=== PATIENT | female | born 1985 | race Caucasian/White ===

== ENCOUNTER 2016-11-08 18:29 | Inpatient (IN) | payer OTHER ==
--- NOTE | 2016-11-08 21:42 | HP ---
COWS - Scale Resting Pulse: 1= IN 81-100 Sweatin= Chills/Flushing Restless Observation: 1= Difficult to Sit Still Pupil Size: 1= Pupils >than Normal Bone or Joint Aches: 2= Severe Diffuse Aches Runny Nose/ Eye Tearin= Runny Nose/Eyes GI Upset > 30mins: 0= None Tremor Observation: 0= None Yawning Observation: 2= >3x During Session Anxiety or Irritability: 2=Irritable/Anxious Goose Flesh Skin: 3=Piloerection COWS Score: 15 Admission ROS S - HPI Chief Complaint: WITHDRAWAL SYMPTOMS Allergies/Adverse Reactions: Allergies Allergy/AdvReac Type Severity Reaction Status Date / Time No Known Allergies Allergy Verified 11/08/16 21:07 History of Present Illness: 31 y.o. woman with a 4 year history of opiate dependence is here seeking detox. She was last here for detox in 08/2015. She reports having a 9 month history of abstinence while on Suboxone 4 months ago. Exam Limitations: No Limitations - Ebola screening Have you traveled outside of the country in the last 21 days: No Have you had contact with anyone from an Ebola affected area: No Do you have a fever: No - Review of Systems Constitutional: Chills, Night Sweats, Changes in sleep EENT: reports: Tearing, Nose Congestion Respiratory: reports: No Symptoms reported Cardiac: reports: No Symptoms Reported GI: reports: No Symptoms Reported : reports: No Symptoms Reported Musculoskeletal: reports: Back Pain Integumentary: reports: Other (Laceration to left hand) Neuro: reports: No Symptoms reported Endocrine: reports: No Symptoms Reported Hematology: reports: No Symptoms Reported Psychiatric: reports: Orientated x3, Anxious, Depressed, other (PTSD) Other Systems: Reviewed and Negative Patient History - Patient Medical History Hx Anemia: No Hx Asthma: Yes Hx Chronic Obstructive Pulmonary Disease (COPD): No Hx Cancer: No Hx Cardiac Disorders: No Hx Congestive Heart Failure: No Hx Hypertension: Yes Hx Hypercholesterolemia: Yes Hx Pacemaker: No HX Cerebrovascular Accident: No Hx Seizures: No Hx Dementia: No Hx Diabetes: No Hx Gastrointestinal Disorders: No Hx Liver Disease: No Hx Genitourinary Disorders: No Hx Sexually Transmitted Disorders: No Hx Renal Disease (ESRD): No Hx Thyroid Disease: No Hx Human Immunodeficiency Virus (HIV): No Hx Hepatitis C: No Hx Depression: Yes Hx Suicide Attempt: No Hx Bipolar Disorder: No Hx Schizophrenia: No - Patient Surgical History Past Surgical History: Yes Hx Neurologic Surgery: No Hx Cataract Extraction: No Hx Cardiac Surgery: No Hx Lung Surgery: No Hx Breast Surgery: No Hx Breast Biopsy: No Hx Abdominal Surgery: No Hx Appendectomy: No Hx Cholecystectomy: No Hx Genitourinary Surgery: No Hx Section: No Hx Orthopedic Surgery: No Other Surgical History: tonsillectomy age 10 Anesthesia Reaction: No - PPD History Previous Implant?: Yes Documented Results: Negative w/proof Date: 09/07/15 Results: 0 PPD to be Administered?: Yes - Reproductive History Patient is a Female of Child Bearing Age (11 -55 yrs old): Yes Last Menstrual Period: 11/08/16 Patient : No - Smoking Cessation Smoking history: Current every day smoker Have you smoked in the past 12 months: Yes Aproximately how many cigarettes per day: 20 Hx Chewing Tobacco Use: No Initiated information on smoking cessation: Yes 'Breaking Loose' booklet given: 11/08/16 - Substance & Tx. History Hx Alcohol Use: No Hx Substance Use: Yes Substance Use Type: Cocaine, Heroin, Marijuana Hx Substance Use Treatment: (Detox here in 08/2015; never sought rehab ) - Substances Abused Heroin Route: Injection Frequency: Daily Amount used: 20 bags Age of first use: 29 Date of Last Use: 11/08/16 Family Disease History - Family Disease History Family Disease History: Diabetes: Grandparent, Other: Mother (heroin abuse - , psych), Brother (heroin abuse ), Sister (heroin use with one half sister) Admission Physical Exam S - Vital Signs Vital Signs: Vital Signs - 24 hr 11/08/16 21:03 Temperature 96.3 F L Pulse Rate 85 Respiratory 20 Rate Blood Pressure 130/90 - Physical General Appearance: Yes: No Apparent Distress, Nourished, Appropriately Dressed , Anxious HEENTM: Yes: Hearing grossly Normal, Normal ENT Inspection, Normocephalic, Normal Voice Respiratory: Yes: Chest Non-Tender, Lungs Clear, Normal Breath Sounds, No Respiratory Distress, No Accessory Muscle Use Neck: Yes: No masses,lesions,Nodules, Trachea in good position Breast: Yes: Breast Exam Deferred Cardiology: Yes: Regular Rhythm, Regular Rate Abdominal: Yes: Normal Bowel Sounds, Non Tender, Flat Genitourinary: Yes: Other (No complaints reported) Back: Yes: Normal Inspection Musculoskeletal: Yes: Gait Steady, Pelvis Stable Extremities: Yes: Normal Inspection, Normal Range of Motion, Non-Tender 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 intact, Fully Oriented, Alert, Motor Strength 5/5, Normal Mood/Affect, Normal Response Integumentary: Yes: Track Minor Lymphatic: Yes: Within Normal Limits - Diagnostic (1) Asthma Current Visit: Yes Status: Chronic Qualifiers: Asthma severity: mild intermittent Asthma complication type: uncomplicated Qualified Code(s): J45.20 - Mild intermittent asthma, uncomplicated (2) Nicotine dependence Current Visit: Yes Status: Chronic Qualifiers: Nicotine product type: cigarettes Substance use status: uncomplicated Qualified Code(s): F17.210 - Nicotine dependence, cigarettes, uncomplicated (3) Opioid dependence with withdrawal Current Visit: Yes Status: Chronic (4) Cocaine dependence Current Visit: Yes Status: Acute (5) Cannabis dependence Current Visit: Yes Status: Acute Cleared for Admission S - Detox or Rehab [facility] Level of Care: Medically Managed Detox Regimen/Protocol: Methadone S Breath Alcohol Content Breath Alcohol Content: 0
[2016-11-08] MEDS ORDERED: MENTHOL/PHENOL 1 EACH UD MM PRN (21:48)
[2016-11-08] MEDS ORDERED: P-EPHED 60MG/TRIPROLIDI 2.5MG TABLET PO PRN (21:48)
[2016-11-08] MEDS ORDERED: MAGNESIUM HYDROX 2400MG/30ML ORAL SUSPENSION 30 ML CUP PO PRN (21:48)
[2016-11-08] MEDS ORDERED: LOPERAMIDE HCL 2 MG CAPSULE PO PRN (21:48)
[2016-11-08] MEDS ORDERED: MAG HYDROX/AL HYDROX/SIMETH 30 ML UNIT-DOSE CUP PO PRN (21:48)
[2016-11-08] MEDS ORDERED: MAGNESIUM CITRATE 300 ML BOTTLE PO PRN (21:48)
[2016-11-08] MEDS ORDERED: guaiFENesin/D-METHORPHAN HB 10 ML UNIT-DOSE CUPS PO PRN (21:48)
[2016-11-08] MEDS ORDERED: diphenhydrAMINE HCL 50 MG CAPSULE PO PRN (21:48)
[2016-11-08] MEDS ORDERED: METHADONE HCL 10 MG TABLET (FOR DETOX USE ONLY) PO ONE ×2 (21:48→23:00)
[2016-11-08] MEDS ORDERED: ALBUTEROL SO4 6.7 GM HFA INHALER IH PRN (21:49)
[2016-11-08] MEDS: diazePAM 5 MG TABLET PO PRN (23:33)
[2016-11-08] MEDS: THIAMINE HCL 100 MG TABLET (FP) PO SCH (23:35)
[2016-11-08] MEDS: BACITRACIN 15 GM TUBE TOPICAL OINTMENT TP SCH (23:36)
[2016-11-09 00:16] VITALS: BMI 29.0
[2016-11-09] MEDS ORDERED: METHADONE HCL 10 MG TABLET (FOR DETOX USE ONLY) PO ONE (10:00)
[2016-11-09 10:28] LABS: MCHC 33.3 g/dl (32.0-36.0); MEAN PLT VOLUME 8.9 fl (7.5-11.1); PLATELET COUNT 205 K/MM3 (134-434); RDW 13.6 % (11.6-15.6); WHITE BLOOD COUNT 8.4 K/mm3 (4.0-10.0)
[2016-11-09] MEDS: NICOTINE 21 MG/24 HOURS TOPICAL PATCH TD SCH (10:31)
[2016-11-09] MEDS: PRENATAL VITAMINS W/ FOLIC ACID TABLET (FP) PO SCH (10:32)
[2016-11-09] MEDS: NICOTINE POLACRILEX 2 MG GUM BUC PRN ×2 (10:32→19:42)
[2016-11-09] MEDS: diazePAM 5 MG TABLET PO PRN ×3 (10:32→19:06)
[2016-11-09] MEDS: BACITRACIN 15 GM TUBE TOPICAL OINTMENT TP SCH (10:32)
[2016-11-09 11:18] LABS: ALBUMIN 3.2 g/dl (3.4-5.0); ALK PHOS 72 U/L (45-117); ANION GAP 8 (8-16); BILIRUBIN,TOTAL 0.4 mg/dL (0.2-1.0); CO2 29 mmol/L (21-32); CREATININE 0.7 mg/dL (0.55-1.02); GLUCOSE,RANDOM 115 mg/dL (74-106); SGOT/AST 9 U/L (15-37); SGPT/ALT 19 U/L (12-78); TOT PROT 6.3 g/dl (6.4-8.2)
--- NOTE | 2016-11-09 11:42 | PN ---
BHS COWS - Scale Resting Pulse: 0= MO 80 or Below Sweatin=Flushed/Facial Moisture Restless Observation: 3= Extraneous Movement Pupil Size: 1= Pupils >than Normal Bone or Joint Aches: 2= Severe Diffuse Aches Runny Nose/ Eye Tearin= Runny Nose/Eyes GI Upset > 30mins: 2= Nausea/Diarrhea Tremor Observation of Outstretched Hands: 2= Slight Tremor Visible Yawning Observation: 1= 1-2x During Session Anxiety or Irritability: 2=Irritable/Anxious Goose Flesh Skin: 0=Smooth Skin COWS Score: 17 BHS Progress Note (SOAP) Subjective: ALERT,IRRITABLE,ANXIOUS,INTERRUPTED SLEEP,TREMOR,PAIN IN THE BODY AND BACK Objective: 11/09/16 11:40 Vital Signs Temperature 97.7 F 11/09/16 09:45 Pulse Rate 66 11/09/16 09:45 Respiratory Rate 16 11/09/16 09:45 Blood Pressure 108/74 11/09/16 09:45 O2 Sat by Pulse Oximetry (%) EKG NSR NO CHEST PAIN,NO SOB,NO DIZZINESS Laboratory Last Values WBC 8.4 K/mm3 (4.0-10.0) 11/09/16 06:30 RBC 4.06 M/mm3 (3.60-5.2) 11/09/16 06:30 Hgb 11.8 GM/dL (10.7-15.3) 11/09/16 06:30 Hct 35.3 % (32.4-45.2) 11/09/16 06:30 MCV 87.0 fl (80-96) 11/09/16 06:30 MCH 29.0 pg (25.7-33.7) 11/09/16 06:30 MCHC 33.3 g/dl (32.0-36.0) 11/09/16 06:30 RDW 13.6 % (11.6-15.6) 11/09/16 06:30 Plt Count 205 K/MM3 (134-434) 11/09/16 06:30 MPV 8.9 fl (7.5-11.1) 11/09/16 06:30 Sodium 141 mmol/L (136-145) 11/09/16 06:30 Potassium 4.7 mmol/L (3.5-5.1) D 11/09/16 06:30 Chloride 104 mmol/L (98-107) 11/09/16 06:30 Carbon Dioxide 29 mmol/L (21-32) 11/09/16 06:30 Anion Gap 8 (8-16) 11/09/16 06:30 BUN 13 mg/dL (7-18) 11/09/16 06:30 Creatinine 0.7 mg/dL (0.55-1.02) 11/09/16 06:30 Creat Clearance w eGFR > 60 (>60) 11/09/16 06:30 Random Glucose 115 mg/dL (74-106) H 11/09/16 06:30 Calcium 9.0 mg/dL (8.5-10.1) 11/09/16 06:30 Total Bilirubin 0.4 mg/dL (0.2-1.0) 11/09/16 06:30 AST 9 U/L (15-37) L 11/09/16 06:30 ALT 19 U/L (12-78) 11/09/16 06:30 Alkaline Phosphatase 72 U/L (45-117) 11/09/16 06:30 Total Protein 6.3 g/dl (6.4-8.2) L 11/09/16 06:30 Albumin 3.2 g/dl (3.4-5.0) L 11/09/16 06:30 LABS PENDING Assessment: 11/09/16 11:41 WITHDRAWAL SYMPTOM Plan: CONTINUE DETOX,FASTING BLOOD GLUCOSE IN AM
--- NOTE | 2016-11-09 12:26 | EKG ---
Test Reason : Blood Pressure : / mmHG Vent. Rate : 073 BPM Atrial Rate : 073 BPM P-R Int : 162 ms QRS Dur : 080 ms QT Int : 382 ms P-R-T Axes : 005 046 023 degrees QTc Int : 420 ms NORMAL SINUS RHYTHM SEPTAL INFARCT , AGE UNDETERMINED ABNORMAL ECG NO PREVIOUS ECGS AVAILABLE Confirmed by RIP CARMONA MD ([id number]) on 11/09/2016 12:26:23 PM Referred By: Confirmed By:RIP CARMONA MD
[2016-11-09] MEDS: hydrOXYzine PAMOATE 50 MG CAPSULE (FP) PO PRN ×2 (13:07→19:06)
[2016-11-09 16:20] LABS: URINE APPEARANCE CLEAR; URINE BILIRUBIN NEGATIVE (NEGATIVE); URINE BLOOD 1+ (NEGATIVE); URINE COLOR LTYELLOW; URINE GLUCOSE (UA) NEGATIVE (NEGATIVE); URINE KETONE NEGATIVE (NEGATIVE); URINE LEUK ESTERASE NEGATIVE (NEGATIVE); URINE NITRITE NEGATIVE (NEGATIVE); URINE PROTEIN NEGATIVE (NEGATIVE); URINE UROBILINOGEN NEGATIVE mg/dL (0.2-1.0)
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
[2016-11-09] MEDS: THIAMINE HCL 100 MG TABLET (FP) PO SCH (22:34)
[2016-11-09] MEDS: ZOLPIDEM TARTRATE 10 MG TABLET (PARK CARE ONLY) PO PRN (23:39)
[2016-11-10] MEDS: diazePAM 5 MG TABLET PO PRN ×4 (04:15→21:38)
[2016-11-10] MEDS ORDERED: METHADONE HCL 5 MG TABLET (FOR DETOX USE ONLY) PO ONE (10:00)
[2016-11-10] MEDS: BACITRACIN 0.9 GM PACKET TP SCH (10:47)
[2016-11-10] MEDS: PRENATAL VITAMINS W/ FOLIC ACID TABLET (FP) PO SCH (10:47)
[2016-11-10] MEDS: cloNIDine HCL 0.1 MG TABLET PO SCH ×2 (10:48→21:38)
[2016-11-10] MEDS: CYCLOBENZAPRINE HCL 10 MG TABLET (FP) PO PRN ×2 (10:50→21:38)
--- NOTE | 2016-11-10 12:43 | PN ---
S CIWA - CIWA Score Nausea/Vomitin Muscle Tremors: 3 Anxiety: 3 Agitation: 2 Paroxysmal Sweats: 1-Minimal Palms Moist Orientation: 0-Oriented Tacttile Disturbances: 1-Very Mild Itch/Numbness Auditory Disturbances: 1-Very Mild Visual Disturbances: 1-Very Mild Sensitivity Headache: 2-Mild CIWA-Ar Total Score: 17 BHS Progress Note (SOAP) Subjective: ALERT,IRRITABLE,ANXIOUS,INTERRUPTED SLEEP,TREMOR Objective: 11/10/16 12:41 Vital Signs Temperature 97.8 F 11/10/16 10:00 Pulse Rate 86 11/10/16 10:00 Respiratory Rate 18 11/10/16 10:00 Blood Pressure 159/100 11/10/16 10:00 O2 Sat by Pulse Oximetry (%) 11/10/16 12:41 FASTING GLUCOSE IS 100 Assessment: 11/10/16 12:42 WITHDRAWAL SYMPTOM Plan: CONTINUE DETOX
[2016-11-10] MEDS: NICOTINE 21 MG/24 HOURS TOPICAL PATCH TD SCH (13:39)
[2016-11-10] MEDS: NICOTINE POLACRILEX 2 MG GUM BUC PRN ×2 (13:42→17:02)
--- NOTE | 2016-11-10 16:22 | PN ---
Psychiatric Progress Note Vital Signs: Vital Signs Period Temp Pulse Resp BP Sys/Emanuel Pulse Ox Last 24 Hr 97.7 F-98.2 F 69-92 16-20 128-159/71-100 Date of Session: 11/10/16 Chief Complaint:: Insomnia HPI: Patient reports insomnia, reports good response on Seroquel 100mg po qhs. prior to this admission Current Medications: Active Medications Generic Name Dose Route Start Last Admin Trade Name Freq PRN Reason Stop Dose Admin Acetaminophen 650 mg 11/08/16 21:48 Tylenol - PO Q4H PRN FEVER OR PAIN Al Hydroxide/Mg Hydroxide 30 ml 11/08/16 21:48 Mylanta Oral Suspension - PO Q6H PRN DYSPEPSIA Albuterol Sulfate 2 puff 11/08/16 21:49 Ventolin Hfa Inhaler - IH Q4H PRN SHORT OF BREATH/WHEEZING Bacitracin 0.9 gm 11/10/16 10:00 11/10/16 10:47 Bacitracin - TP 0.9 gm DAILY CONCHIS Administration Clonidine 0.1 mg 11/10/16 10:00 11/10/16 10:48 Catapres - PO 0.1 mg BID CONCHIS Administration Cyclobenzaprine HCl 10 mg 11/10/16 09:14 11/10/16 10:50 Flexeril - PO 10 mg TID PRN Administration MUSCLE SPASMS Diazepam 10 mg 11/08/16 21:48 11/10/16 10:50 Valium - PO 11/11/16 21:47 10 mg Q4H PRN Administration WITHDRAWAL(CONT SUBST) Diphenhydramine HCl 50 mg 11/08/16 21:48 11/08/16 23:38 Benadryl - PO 50 mg HSMR1 PRN Administration INSOMNIA Eucalyptus/Menthol/Phenol/Sorbitol 1 each 11/08/16 21:48 Cepastat Lozenge - MM Q4H PRN SORE THROAT Guaifenesin 10 ml 11/08/16 21:48 Robitussin Dm - PO Q6H PRN COUGH Hydroxyzine Pamoate 50 mg 11/08/16 21:48 11/09/16 19:06 Vistaril - PO 50 mg Q4H PRN Administration AGITATION Ibuprofen 400 mg 11/08/16 21:48 Motrin - PO Q6H PRN SEVERE PAIN Loperamide HCl 4 mg 11/08/16 21:48 Imodium - PO Q6H PRN DIARRHEA Magnesium Citrate 300 ml 11/08/16 21:48 Citroma - PO Q48H PRN CONSTIPATION Magnesium Hydroxide 30 ml 11/08/16 21:48 Milk Of Magnesia - PO DAILY PRN CONSTIPATION Methadone HCl 10 mg 11/12/16 10:00 Dolophine - PO 11/12/16 10:01 ONCE ONE Methadone HCl 15 mg 11/11/16 10:00 Dolophine - PO 11/11/16 10:01 ONCE ONE Methadone HCl 5 mg 11/13/16 06:00 Dolophine - PO 11/13/16 06:01 ONCE@0600 ONE Nicotine 21 mg 11/09/16 10:00 11/10/16 13:39 Nicoderm Patch - TD 21 mg DAILY CONCHIS Administration Nicotine Polacrilex 2 mg 11/08/16 21:48 11/10/16 13:42 Nicorette Gum - BUC 2 mg Q2H PRN Administration NICOTINE REPLACEMENT RX Multivit/Folic Acid/Iron 1 tab 11/09/16 10:00 11/10/16 10:47 Vitamins (Sjr) - PO 1 tab DAILY CONCHIS Administration Pseudoephedrine/Triprolidine 1 combo 11/08/16 21:48 Actifed - PO TID PRN NASAL CONGESTION Thiamine HCl 100 mg 11/08/16 22:00 11/09/16 22:34 Vitamin B1 - PO 100 mg HS CONCHIS Administration Zolpidem Tartrate 10 mg 11/09/16 23:09 11/09/16 23:39 Ambien - PO 10 mg HS PRN Administration Medication(s) Change(s): Seroquel 100mg po qhs Mental Status Exam - Mental Status Exam Alert and Oriented to: Person Cognitive Function: Fair Patient Appearance: Well Groomed Mood: Anxious Affect: Mood Congruent Patient Behavior: Cooperative Speech Pattern: Appropriate Voice Loudness: Normal Thought Process: Goal Oriented Thought Disorder: Being Controlled Hallucinations: Denies Suicidal Ideation: Denies Homicidal Ideation: Denies Insight/Judgement: Fair Sleep: Difficulty falling asleep Appetite: Weight gain Muscle strength/Tone: Normal Gait/Station: Normal Additional Comments: Seroquel 100mg po qhs Psychiatric Treatment Plan - Problem List (1) Cannabis dependence Current Visit: Yes (2) Cocaine dependence Current Visit: Yes (3) Nicotine dependence Current Visit: Yes Qualifiers: Nicotine product type: cigarettes Substance use status: uncomplicated Qualified Code(s): F17.210 - Nicotine dependence, cigarettes, uncomplicated (4) Opioid dependence with withdrawal Current Visit: Yes (5) Substance induced mood disorder Current Visit: Yes (6) Uncomplicated opioid dependence Current Visit: No (7) Alcohol dependence with uncomplicated withdrawal Current Visit: No (8) Anxiety Current Visit: No (9) Drug-induced mood disorder Current Visit: Yes Initial treatment plan: Seroquel 100mg po qhs
[2016-11-10] MEDS: hydrOXYzine PAMOATE 50 MG CAPSULE (FP) PO PRN (17:02)
[2016-11-10] MEDS: QUEtiapine FUMARATE 100 MG TABLET (FP) PO SCH (21:38)
[2016-11-10] MEDS: THIAMINE HCL 100 MG TABLET (FP) PO SCH (21:38)
[2016-11-11] MEDS: diazePAM 5 MG TABLET PO PRN ×3 (09:25→18:04)
[2016-11-11] MEDS ORDERED: METHADONE HCL 5 MG TABLET (FOR DETOX USE ONLY) PO ONE (10:00)
[2016-11-11] MEDS: cloNIDine HCL 0.1 MG TABLET PO SCH ×2 (10:39→22:04)
[2016-11-11] MEDS: CYCLOBENZAPRINE HCL 10 MG TABLET (FP) PO PRN ×2 (10:39→22:04)
[2016-11-11] MEDS: BACITRACIN 0.9 GM PACKET TP SCH (10:39)
[2016-11-11] MEDS: PRENATAL VITAMINS W/ FOLIC ACID TABLET (FP) PO SCH (10:39)
[2016-11-11] MEDS: NICOTINE 21 MG/24 HOURS TOPICAL PATCH TD SCH (10:39)
--- NOTE | 2016-11-11 11:18 | PN ---
BHS Progress Note (SOAP) Subjective: ALERT,IRRITABLE,ANXIOUS,INTERRUPTED SLEEP,PAIN IN THE BODY Objective: 11/11/16 11:17 Vital Signs Temperature 97.2 F L 11/11/16 10:00 Pulse Rate 93 H 11/11/16 10:00 Respiratory Rate 16 11/11/16 10:00 Blood Pressure 124/79 11/11/16 10:00 O2 Sat by Pulse Oximetry (%) Assessment: 11/11/16 11:18 WITHDRAWAL SYMPTOM Plan: CONTINUE DETOX
[2016-11-11] MEDS: IBUPROFEN 400 MG TABLET (FP) PO PRN (13:54)
[2016-11-11] MEDS: QUEtiapine FUMARATE 100 MG TABLET (FP) PO SCH (22:04)
[2016-11-11] MEDS: ZOLPIDEM TARTRATE 10 MG TABLET (PARK CARE ONLY) PO PRN (22:04)
[2016-11-11] MEDS: THIAMINE HCL 100 MG TABLET (FP) PO SCH (22:05)
[2016-11-11] MEDS: hydrOXYzine PAMOATE 50 MG CAPSULE (FP) PO PRN (22:08)
[2016-11-11] MEDS: NICOTINE POLACRILEX 2 MG GUM BUC PRN (22:47)
[2016-11-12] MEDS: ACETAMINOPHEN 325 MG TABLET (FP) PO PRN ×2 (05:35→10:27)
[2016-11-12] MEDS: hydrOXYzine PAMOATE 50 MG CAPSULE (FP) PO PRN ×4 (05:36→22:23)
[2016-11-12] MEDS ORDERED: METHADONE HCL 10 MG TABLET (FOR DETOX USE ONLY) PO ONE (10:00)
[2016-11-12] MEDS: BACITRACIN 0.9 GM PACKET TP SCH (10:24)
[2016-11-12] MEDS: PRENATAL VITAMINS W/ FOLIC ACID TABLET (FP) PO SCH (10:24)
[2016-11-12] MEDS: cloNIDine HCL 0.1 MG TABLET PO SCH ×2 (10:24→22:22)
[2016-11-12] MEDS: CYCLOBENZAPRINE HCL 10 MG TABLET (FP) PO PRN ×2 (10:26→22:26)
--- NOTE | 2016-11-12 11:53 | PN ---
BHS Progress Note (SOAP) Subjective: Sore throat,sweating,anxiety,tremors,interrupted sleep,restless Objective: 11/12/16 11:53 Vital Signs - 8 hr 11/12/16 11/12/16 06:00 09:53 Temperature 98.1 F 98.4 F Pulse Rate 77 103 H Respiratory 18 16 Rate Blood Pressure 120/71 128/80 Laboratory Last Values WBC 8.4 K/mm3 (4.0-10.0) 11/09/16 06:30 RBC 4.06 M/mm3 (3.60-5.2) 11/09/16 06:30 Hgb 11.8 GM/dL (10.7-15.3) 11/09/16 06:30 Hct 35.3 % (32.4-45.2) 11/09/16 06:30 MCV 87.0 fl (80-96) 11/09/16 06:30 MCH 29.0 pg (25.7-33.7) 11/09/16 06:30 MCHC 33.3 g/dl (32.0-36.0) 11/09/16 06:30 RDW 13.6 % (11.6-15.6) 11/09/16 06:30 Plt Count 205 K/MM3 (134-434) 11/09/16 06:30 MPV 8.9 fl (7.5-11.1) 11/09/16 06:30 Sodium 141 mmol/L (136-145) 11/09/16 06:30 Potassium 4.7 mmol/L (3.5-5.1) D 11/09/16 06:30 Chloride 104 mmol/L (98-107) 11/09/16 06:30 Carbon Dioxide 29 mmol/L (21-32) 11/09/16 06:30 Anion Gap 8 (8-16) 11/09/16 06:30 BUN 13 mg/dL (7-18) 11/09/16 06:30 Creatinine 0.7 mg/dL (0.55-1.02) 11/09/16 06:30 Creat Clearance w eGFR > 60 (>60) 11/09/16 06:30 Random Glucose 115 mg/dL (74-106) H 11/09/16 06:30 Fasting Glucose 100 mg/dL (70-105) 11/10/16 06:30 Calcium 9.0 mg/dL (8.5-10.1) 11/09/16 06:30 Total Bilirubin 0.4 mg/dL (0.2-1.0) 11/09/16 06:30 AST 9 U/L (15-37) L 11/09/16 06:30 ALT 19 U/L (12-78) 11/09/16 06:30 Alkaline Phosphatase 72 U/L (45-117) 11/09/16 06:30 Total Protein 6.3 g/dl (6.4-8.2) L 11/09/16 06:30 Albumin 3.2 g/dl (3.4-5.0) L 11/09/16 06:30 Urine Color Ltyellow 11/09/16 13:50 Urine Appearance Clear 11/09/16 13:50 Urine pH 5.0 (5.0-8.0) 11/09/16 13:50 Ur Specific [place] 1.015 (1.005-1.025) 11/09/16 13:50 Urine Protein Negative (NEGATIVE) 11/09/16 13:50 Urine Glucose (UA) Negative (NEGATIVE) 11/09/16 13:50 Urine Ketones Negative (NEGATIVE) 11/09/16 13:50 Urine Blood 1+ (NEGATIVE) H 11/09/16 13:50 Urine Nitrite Negative (NEGATIVE) 11/09/16 13:50 Urine Bilirubin Negative (NEGATIVE) 11/09/16 13:50 Urine Urobilinogen Negative mg/dL (0.2-1.0) 11/09/16 13:50 Ur Leukocyte Esterase Negative (NEGATIVE) 11/09/16 13:50 RPR Titer Nonreactive (NONREACTIVE) 11/09/16 06:30 Throat : Somewhat irritated,otherwise normal Assessment: 11/12/16 11:53 Withdrawal sx. Plan: Continue detox
[2016-11-12] MEDS: NICOTINE POLACRILEX 2 MG GUM BUC PRN ×2 (14:07→19:10)
[2016-11-12] MEDS: NICOTINE 21 MG/24 HOURS TOPICAL PATCH TD SCH (14:12)
[2016-11-12] MEDS: ZOLPIDEM TARTRATE 10 MG TABLET (PARK CARE ONLY) PO PRN (22:22)
[2016-11-12] MEDS: THIAMINE HCL 100 MG TABLET (FP) PO SCH (22:23)
[2016-11-12] MEDS: QUEtiapine FUMARATE 100 MG TABLET (FP) PO SCH (22:23)
[2016-11-13] MEDS: hydrOXYzine PAMOATE 50 MG CAPSULE (FP) PO PRN (05:37)
[2016-11-13] MEDS ORDERED: METHADONE HCL 5 MG TABLET (FOR DETOX USE ONLY) PO ONE (06:00)
[2016-11-13] MEDS: IBUPROFEN 400 MG TABLET (FP) PO PRN (08:37)
[2016-11-13] MEDS: PRENATAL VITAMINS W/ FOLIC ACID TABLET (FP) PO SCH (09:56)
[2016-11-13] MEDS: CYCLOBENZAPRINE HCL 10 MG TABLET (FP) PO PRN (09:57)
[2016-11-13] MEDS: cloNIDine HCL 0.1 MG TABLET PO SCH (09:57)
[2016-11-13 11:22] VITALS: BP 130/75; PULSE 77; TEMP 98.9
--- NOTE | 2016-11-13 12:15 | DS ---
[facility] Detox Discharge Summary Admission Date: 11/08/16 Discharge Date: 11/13/16 - History Present History: Cannabis Dependence, Cocaine Dependence, Opioid Dependence Pertinent Past History: Asthma - Physical Exam Results Vital Signs: Vital Signs Temperature 98.9 F 11/13/16 10:00 Pulse Rate 77 11/13/16 10:00 Respiratory Rate 20 11/13/16 10:00 Blood Pressure 130/75 11/13/16 10:00 O2 Sat by Pulse Oximetry (%) Pertinent Admission Physical Exam Findings: Withdrawal sx. Laboratory Last Values WBC 8.4 K/mm3 (4.0-10.0) 11/09/16 06:30 RBC 4.06 M/mm3 (3.60-5.2) 11/09/16 06:30 Hgb 11.8 GM/dL (10.7-15.3) 11/09/16 06:30 Hct 35.3 % (32.4-45.2) 11/09/16 06:30 MCV 87.0 fl (80-96) 11/09/16 06:30 MCH 29.0 pg (25.7-33.7) 11/09/16 06:30 MCHC 33.3 g/dl (32.0-36.0) 11/09/16 06:30 RDW 13.6 % (11.6-15.6) 11/09/16 06:30 Plt Count 205 K/MM3 (134-434) 11/09/16 06:30 MPV 8.9 fl (7.5-11.1) 11/09/16 06:30 Sodium 141 mmol/L (136-145) 11/09/16 06:30 Potassium 4.7 mmol/L (3.5-5.1) D 11/09/16 06:30 Chloride 104 mmol/L (98-107) 11/09/16 06:30 Carbon Dioxide 29 mmol/L (21-32) 11/09/16 06:30 Anion Gap 8 (8-16) 11/09/16 06:30 BUN 13 mg/dL (7-18) 11/09/16 06:30 Creatinine 0.7 mg/dL (0.55-1.02) 11/09/16 06:30 Creat Clearance w eGFR > 60 (>60) 11/09/16 06:30 Random Glucose 115 mg/dL (74-106) H 11/09/16 06:30 Fasting Glucose 100 mg/dL (70-105) 11/10/16 06:30 Calcium 9.0 mg/dL (8.5-10.1) 11/09/16 06:30 Total Bilirubin 0.4 mg/dL (0.2-1.0) 11/09/16 06:30 AST 9 U/L (15-37) L 11/09/16 06:30 ALT 19 U/L (12-78) 11/09/16 06:30 Alkaline Phosphatase 72 U/L (45-117) 11/09/16 06:30 Total Protein 6.3 g/dl (6.4-8.2) L 11/09/16 06:30 Albumin 3.2 g/dl (3.4-5.0) L 11/09/16 06:30 Urine Color Ltyellow 11/09/16 13:50 Urine Appearance Clear 11/09/16 13:50 Urine pH 5.0 (5.0-8.0) 11/09/16 13:50 Ur Specific [place] 1.015 (1.005-1.025) 11/09/16 13:50 Urine Protein Negative (NEGATIVE) 11/09/16 13:50 Urine Glucose (UA) Negative (NEGATIVE) 11/09/16 13:50 Urine Ketones Negative (NEGATIVE) 11/09/16 13:50 Urine Blood 1+ (NEGATIVE) H 11/09/16 13:50 Urine Nitrite Negative (NEGATIVE) 11/09/16 13:50 Urine Bilirubin Negative (NEGATIVE) 11/09/16 13:50 Urine Urobilinogen Negative mg/dL (0.2-1.0) 11/09/16 13:50 Ur Leukocyte Esterase Negative (NEGATIVE) 11/09/16 13:50 RPR Titer Nonreactive (NONREACTIVE) 11/09/16 06:30 labs noted - Treatment Hospital Course: Detox Protocol Followed, Detoxed Safely, Responded well, Discharged Condition Good, Rehab Referral Accepted Patient has Accepted a Rehab Referral to: IOP - Medication Discharge Medications: Ambulatory Orders Peg 3350/Na Sulf,Bicarb,Cl/KCl [Golytely Packet] 1 each PO ONCE #1 powd.pack 08/30 Albuterol Sulfate Inhaler - [Ventolin HFA Inhaler -] 2 puff IH Q4HPO PRN #1 inhaler 09/10/15 Budesonide/Formeterol Fumarate [SYMBICORT 80/4.5mcg -] 1 puff IH BID #1 inhaler 09/10/15 Quetiapine Fumarate [Seroquel] 100 mg PO HS #30 tablet 11/10/16 - Diagnosis (1) Cocaine dependence Current Visit: Yes Status: Acute Qualifiers: Substance use status: uncomplicated Qualified Code(s): F14.20 - Cocaine dependence, uncomplicated (2) Nicotine dependence Current Visit: Yes Status: Acute Qualifiers: Nicotine product type: cigarettes Substance use status: uncomplicated Qualified Code(s): F17.210 - Nicotine dependence, cigarettes, uncomplicated (3) Opioid dependence with withdrawal Current Visit: Yes Status: Acute (4) Substance induced mood disorder Current Visit: Yes Status: Acute (5) Asthma Current Visit: Yes Status: Chronic Qualifiers: Asthma severity: mild intermittent Asthma complication type: uncomplicated Qualified Code(s): J45.20 - Mild intermittent asthma, uncomplicated (6) Alcohol dependence with uncomplicated withdrawal Current Visit: Yes Status: Chronic - AMA Did Patient Leave Against Medical Advice: No
== END 2016-11-13 10:12 | disposition home or self-care (01) | DRG 773 ==
LOC: YASAS 18:29 → Y6N 20:46
PROVIDERS: ADMIT Internal Medicine; ATTEND Internal Medicine
PROC: HZ2ZZZZ Detoxification Services for Substance Abuse Treatment (ICD-10-PCS; principal; 2016-11-13)
DX: F11.23 Opioid dependence with withdrawal (principal); F10.230 Alcohol dependence with withdrawal, uncomplicated; F14.20 Cocaine dependence, uncomplicated; F12.20 Cannabis dependence, uncomplicated; F17.210 Nicotine dependence, cigarettes, uncomplicated; F19.24 Other psychoactive substance dependence with psychoactive substance-induced mood disorder; F41.9 Anxiety disorder, unspecified; G47.00 Insomnia, unspecified; J45.20 Mild intermittent asthma, uncomplicated; I10 Essential (primary) hypertension; M54.5 Low back pain; G89.29 Other chronic pain
CPT/HCPCS: 36415; 80053; 81003; 81015; 82947; 85027; 86593; 93005; 93010

== ENCOUNTER 2016-12-14 18:05 | Inpatient (IN) | payer OTHER ==
[2016-12-14 19:50] VITALS: BMI 26.4
--- NOTE | 2016-12-14 20:28 | HP ---
COWS - Scale Resting Pulse: 1= [place] 81-100 Sweatin=Flushed/Facial Moisture Restless Observation: 3= Extraneous Movement Pupil Size: 2= Moderately Dilated Bone or Joint Aches: 2= Severe Diffuse Aches Runny Nose/ Eye Tearin= Runny Nose/Eyes GI Upset > 30mins: 2= Nausea/Diarrhea Tremor Observation: 2= Slight Tremor Visible Yawning Observation: 2= >3x During Session Anxiety or Irritability: 2=Irritable/Anxious Goose Flesh Skin: 0=Smooth Skin COWS Score: 20 Admission ROS S - HPI Chief Complaint: i need help to stop using heroin,cocaine,pcp,klonopin Allergies/Adverse Reactions: Allergies Allergy/AdvReac Type Severity Reaction Status Date / Time No Known Allergies Allergy Verified 12/14/16 21:04 History of Present Illness: this 31 years old female with heroin,cocaine,pcp,klonopin dependence,seeking detox,seen [facility] last night refer for detox,last treatment in [facility] 11/08/16 to 11/13/16 multiple admissions in the past but keep relapsing nicotine dependence anxiety insomnia no significant period of sobriety - Ebola screening Have you traveled outside of the country in the last 21 days: No Have you had contact with anyone from an Ebola affected area: No Have you been sick,other than usual withdrawal symptoms: No Do you have a fever: No - Review of Systems Constitutional: Chills, Loss of Appetite, Malaise, Night Sweats, Changes in sleep EENT: reports: Tearing, Nose Congestion Respiratory: reports: No Symptoms reported Cardiac: reports: Palpitations GI: reports: Diarrhea, Nausea, Poor Appetite, Vomiting Musculoskeletal: reports: No Symptoms Reported Integumentary: reports: Dryness Neuro: reports: Headache, Tremors Endocrine: reports: No Symptoms Reported Hematology: reports: No Symptoms Reported Psychiatric: reports: No Sypmtoms Reported (insomnia), Judgement Intact, Mood/ Affect Appropiate, Anxious Patient History - Patient Medical History Hx Anemia: No Hx Asthma: Yes (on albuterol inhaler) Hx Chronic Obstructive Pulmonary Disease (COPD): No Hx Cancer: No Hx Cardiac Disorders: No Hx Congestive Heart Failure: No Hx Hypertension: Yes (no med) Hx Hypercholesterolemia: No Hx Pacemaker: No HX Cerebrovascular Accident: No Hx Seizures: No Hx Dementia: No Hx Diabetes: No Hx Gastrointestinal Disorders: No Hx Liver Disease: No Hx Genitourinary Disorders: No Hx Sexually Transmitted Disorders: No Hx Renal Disease (ESRD): No Hx Thyroid Disease: No Hx Human Immunodeficiency Virus (HIV): No (last 2015 negative) Hx Hepatitis C: No Hx Depression: Yes (anxiety,insomnia) Hx Suicide Attempt: No Hx Bipolar Disorder: No Hx Schizophrenia: No Other Medical History: no suicidal,no homicidal - Patient Surgical History Past Surgical History: Yes Hx Neurologic Surgery: No Hx Cataract Extraction: No Hx Cardiac Surgery: No Hx Lung Surgery: No Hx Breast Surgery: No Hx Breast Biopsy: No Hx Abdominal Surgery: No Hx Appendectomy: No Hx Cholecystectomy: No Hx Genitourinary Surgery: No Hx Section: No Hx Orthopedic Surgery: No Other Surgical History: tonsillectomy age 10 Anesthesia Reaction: No - PPD History Previous Implant?: Yes Documented Results: Negative w/proof Implanted On Prior [facility] Admission?: Yes Date: 11/10/16 Results: 0 PPD to be Administered?: No - Reproductive History Patient is a Female of Child Bearing Age (11 -55 yrs old): Yes Last Menstrual Period: 12/08/16 Patient : No - Smoking Cessation Smoking history: Current every day smoker Have you smoked in the past 12 months: Yes Aproximately how many cigarettes per day: 20 Hx Chewing Tobacco Use: No Initiated information on smoking cessation: Yes 'Breaking Loose' booklet given: 12/14/16 - Substance & Tx. History Hx Alcohol Use: No Hx Substance Use: Yes Substance Use Type: Cocaine, Heroin, Tranquilizers Hx Substance Use Treatment: Yes ([facility] 11/08/16 to 11/13/16) - Substances Abused Heroin Route: Injection Frequency: Daily Amount used: 20 bags Age of first use: 29 Date of Last Use: 12/13/16 Cocaine Route: Inhalation Frequency: 1-2 times per week Amount used: 100$ Age of first use: 15 Date of Last Use: 12/12/16 Benzodiazepine (Klonopin) Route: Oral Frequency: Daily Amount used: 4 mgs Age of first use: 29 Date of Last Use: 12/13/16 PCP Route: Smoking Frequency: 1-3 times last 30 days Amount used: 30$ Age of first use: 31 Date of Last Use: 12/13/16 Family Disease History - Family Disease History Family Disease History: Diabetes: Grandparent, Other: Mother (heroin abuse - , psych), Brother (heroin abuse ), Sister (heroin use with one half sister) Admission Physical Exam [facility] - Vital Signs Vital Signs: Vital Signs - 24 hr 12/14/16 19:46 Temperature 96.4 F L Pulse Rate 90 Respiratory 20 Rate Blood Pressure 136/94 - Physical General Appearance: Yes: Moderate Distress, Tremorous, Irritable, Sweating, Anxious HEENTM: Yes: Normal ENT Inspection, CHACHA, Pharynx Normal Respiratory: Yes: Lungs Clear, Normal Breath Sounds, No Respiratory Distress Neck: Yes: Within Normal Limits, Supple, Trachea in good position Breast: Yes: Breast Exam Deferred Cardiology: Yes: Within Normal Limits, Regular Rhythm, Regular Rate, S1, S2 Abdominal: Yes: Within Normal Limits, Normal Bowel Sounds, Non Tender Genitourinary: Yes: Within Normal Limits Back: Yes: Within Normal Limits, Muscle Spasm Musculoskeletal: Yes: Back pain, Muscle Pain Extremities: Yes: Within Normal Limits, Normal Range of Motion, Tremors Neurological: Yes: regional sales executive II-XII NML intact, Fully Oriented, Alert, Motor Strength 5/5 Integumentary: Yes: Dry, Track Minor (multiple lesio of forearms face scratching ), Other Lymphatic: Yes: Within Normal Limits - Diagnostic (1) Opioid dependence with withdrawal Current Visit: No Status: Acute (2) Uncomplicated sedative, hypnotic or anxiolytic withdrawal Current Visit: Yes Status: Acute (3) Cocaine dependence Current Visit: No Status: Acute Qualifiers: Substance use status: uncomplicated Qualified Code(s): F14.20 - Cocaine dependence, uncomplicated (4) PCP abuse Current Visit: Yes Status: Acute (5) Insomnia Current Visit: No Status: Acute (6) Anxiety Current Visit: No Status: Chronic (7) Asthma Current Visit: No Status: Chronic Qualifiers: Asthma severity: mild intermittent Asthma complication type: uncomplicated Qualified Code(s): J45.20 - Mild intermittent asthma, uncomplicated Cleared for Admission [facility] - Detox or Rehab [facility] Level of Care: Medically Managed Detox Regimen/Protocol: Methadone [facility] Breath Alcohol Content Breath Alcohol Content: 0 Urine Pregancy Test - Result Urine Test Results: Negative- NO Line Present Urine Drug Screen - Results Drug Screen Negative: No Urine Drug Screen Results: COLLINS-Cocaine, OPI-Opiates, AMP-Amphetamines, PCP- Phencyclidine
[2016-12-14] MEDS ORDERED: guaiFENesin/D-METHORPHAN HB 10 ML UNIT-DOSE CUPS PO PRN (20:47)
[2016-12-14] MEDS ORDERED: ACETAMINOPHEN 325 MG TABLET (FP) PO PRN (20:47)
[2016-12-14] MEDS ORDERED: MAGNESIUM HYDROX 2400MG/30ML ORAL SUSPENSION 30 ML CUP PO PRN (20:47)
[2016-12-14] MEDS ORDERED: LOPERAMIDE HCL 2 MG CAPSULE PO PRN (20:47)
[2016-12-14] MEDS ORDERED: MAG HYDROX/AL HYDROX/SIMETH 30 ML UNIT-DOSE CUP PO PRN (20:47)
[2016-12-14] MEDS ORDERED: METHADONE HCL 10 MG TABLET (FOR DETOX USE ONLY) PO ONE ×3 (20:47→23:15)
[2016-12-14] MEDS ORDERED: MAGNESIUM CITRATE 300 ML BOTTLE PO PRN (20:47)
[2016-12-14] MEDS ORDERED: diphenhydrAMINE HCL 50 MG CAPSULE PO PRN (20:47)
[2016-12-14] MEDS ORDERED: MENTHOL/PHENOL 1 EACH UD MM PRN (20:47)
[2016-12-14] MEDS ORDERED: IBUPROFEN 400 MG TABLET (FP) PO PRN (20:47)
[2016-12-14] MEDS ORDERED: P-EPHED 60MG/TRIPROLIDI 2.5MG TABLET PO PRN (20:47)
[2016-12-14] MEDS ORDERED: NICOTINE POLACRILEX 2 MG GUM BUC PRN (20:47)
[2016-12-14] MEDS ORDERED: ALBUTEROL SO4 6.7 GM HFA INHALER IH PRN (20:52)
[2016-12-14] MEDS: cloNIDine HCL 0.1 MG TABLET PO SCH (23:13)
[2016-12-14] MEDS: diazePAM 5 MG TABLET PO PRN (23:13)
[2016-12-14] MEDS: CYCLOBENZAPRINE HCL 10 MG TABLET (FP) PO PRN (23:13)
[2016-12-14] MEDS: THIAMINE HCL 100 MG TABLET (FP) PO SCH (23:13)
[2016-12-14] MEDS: NICOTINE 21 MG/24 HOURS TOPICAL PATCH TD SCH (23:23)
[2016-12-14] MEDS: BUDESONIDE/FORMETEROL FUMARATE 80/4.5 mcg INHALER IH SCH (23:23)
--- NOTE | 2016-12-15 08:52 | CONSULT ---
[facility] Psychiatric Consult - Data Date of interview: 12/15/16 Admission source: [facility] Identifying data: This is 31 years old female with no psychiatric hospitalization history intoxicated withOpioids, Amphethamins, Cocaine, PCP, Xanax and Nicotine Substance Abuse History: - Smoking Cessation. Smoking history: Current every day smoker. Have you smoked in the past 12 months: Yes. Aproximately how many cigarettes per day: 20. Hx Chewing Tobacco Use: No. Initiated information on smoking cessation: Yes. 'Breaking Loose' booklet given: 12/14/16. - Substance & Tx. History. Hx Alcohol Use: No. Hx Substance Use: Yes. Substance Use Type : Cocaine, Heroin, Tranquilizers. Hx Substance Use Treatment: Yes ([facility] 11/13/16). - Substances Abused. Heroin. Route: Injection. Frequency : Daily. Amount used: 20 bags. Age of first use: 29. Date of Last Use: . Cocaine. Route: Inhalation. Frequency: 1-2 times per week. Amount used: 100$. Age of first use: 15. Date of Last Use: 12/12/16. Benzodiazepine (Klonopin). Route: Oral. Frequency: Daily. Amount used: 4 mgs. Age of first use: 29. Date of Last Use: 12/13/16. PCP. Route: Smoking. Frequency: 1-3 times last 30 days. Amount used: 30$. Age of first use: 31. Date of Last Use: 12/13/16 Medical History: Cellulitis history, Asthma, LBP. HTN, Hupokalenia history, multiple pumples at both forearmes area Psychiatric History: Patient reports history of anxiety, reports taking prior to admission: Seroquel 199mg po qhs. Patint reports history of anxiety, both forearmes with mu[tple picking pumples,( Dermatillomania ) patient reprots doing this to reduce anxiety, reports taking Seroquel 100mg po qhs for insomnia with good response Physical/Sexual Abuse/Trauma History: Denies Additional Comment: Seroquel 100mg po qhs Mental Status Exam - Mental Status Exam Alert and Oriented to: Place, Person Cognitive Function: Fair Patient Appearance: Unkempt Mood: Apprehensive Affect: Mood Congruent Patient Behavior: Appropriate, Cooperative Speech Pattern: Appropriate Voice Loudness: Normal Thought Process: Goal Oriented Thought Disorder: Being Controlled Hallucinations: Denies Suicidal Ideation: Denies Homicidal Ideation: Denies Insight/Judgement: Fair Sleep: Difficulty falling asleep Appetite: Weight gain Muscle strength/Tone: Normal Gait/Station: Normal Additional Comments: Seroquel 100mg po qhs Psychiatric Findings - Problem List ([place] 1, 2,3) (1) PCP abuse Current Visit: Yes Status: Acute (2) Uncomplicated sedative, hypnotic or anxiolytic withdrawal Current Visit: Yes Status: Acute (3) Cannabis dependence Current Visit: No Status: Acute (4) Cocaine dependence Current Visit: No Status: Acute Qualifiers: Substance use status: uncomplicated Qualified Code(s): F14.20 - Cocaine dependence, uncomplicated (5) Drug-induced mood disorder Current Visit: No Status: Acute (6) Nicotine dependence Current Visit: No Status: Acute Qualifiers: Nicotine product type: cigarettes Substance use status: uncomplicated Qualified Code(s): F17.210 - Nicotine dependence, cigarettes, uncomplicated (7) Opioid dependence with withdrawal Current Visit: No Status: Acute (8) Substance induced mood disorder Current Visit: No Status: Acute (9) Uncomplicated opioid dependence Current Visit: No Status: Acute (10) Alcohol dependence with uncomplicated withdrawal Current Visit: No Status: Chronic (11) Anxiety Current Visit: No Status: Chronic (12) Dermatillomania Current Visit: Yes Status: Acute (13) Xanax use disorder, mild, in controlled environment Current Visit: Yes Status: Acute (14) Opioid dependence Current Visit: Yes Status: Acute - Initial Treatment Plan Initial Treatment Plan: Seroquel 100mg po qhs
[2016-12-15 09:41] LABS: MCH 28.3 pg (25.7-33.7); MCHC 32.4 g/dl (32.0-36.0); MEAN CELL VOLUME 87.3 fl (80-96); MEAN PLT VOLUME 8.6 fl (7.5-11.1); PLATELET COUNT 298 K/MM3 (134-434); WHITE BLOOD COUNT 9.8 K/mm3 (4.0-10.0)
[2016-12-15] MEDS ORDERED: METHADONE HCL 10 MG TABLET (FOR DETOX USE ONLY) PO ONE (10:00)
[2016-12-15 10:03] LABS: SGOT/AST 9 U/L (15-37); SGPT/ALT 19 U/L (12-78)
[2016-12-15 10:12] LABS: ALBUMIN 3.2 g/dl (3.4-5.0); ALK PHOS 71 U/L (45-117); ANION GAP 7 (8-16); BILIRUBIN,TOTAL 0.4 mg/dL (0.2-1.0); CALCIUM 9.8 mg/dL (8.5-10.1); CO2 28 mmol/L (21-32); CREATININE 0.6 mg/dL (0.55-1.02); GLUCOSE,RANDOM 94 mg/dL (74-106); TOT PROT 6.2 g/dl (6.4-8.2)
[2016-12-15] MEDS: cloNIDine HCL 0.1 MG TABLET PO SCH ×3 (10:15→22:36)
[2016-12-15] MEDS: diazePAM 5 MG TABLET PO PRN ×2 (10:15→17:43)
[2016-12-15] MEDS: CYCLOBENZAPRINE HCL 10 MG TABLET (FP) PO PRN (10:15)
[2016-12-15] MEDS: NICOTINE 21 MG/24 HOURS TOPICAL PATCH TD SCH (10:15)
[2016-12-15] MEDS: PRENATAL VITAMINS W/ FOLIC ACID TABLET (FP) PO SCH (10:16)
[2016-12-15] MEDS: BUDESONIDE/FORMETEROL FUMARATE 80/4.5 mcg INHALER IH SCH ×2 (10:16→22:37)
--- NOTE | 2016-12-15 11:34 | EKG ---
Test Reason : Blood Pressure : / mmHG Vent. Rate : 082 BPM Atrial Rate : 082 BPM P-R Int : 168 ms QRS Dur : 086 ms QT Int : 388 ms P-R-T Axes : 017 040 007 degrees QTc Int : 453 ms NORMAL SINUS RHYTHM NORMAL ECG WHEN COMPARED WITH ECG OF 08-NOV-2016 21:34, CRITERIA FOR SEPTAL INFARCT ARE NO LONGER PRESENT Confirmed by CONG MELGAR MD ([id number]) on 12/15/2016 11:33:55 AM Referred By: Confirmed By:CONG MELGAR MD
--- NOTE | 2016-12-15 13:01 | PN ---
S COWS - Scale Resting Pulse: 1= [place] 81-100 Sweatin= Chills/Flushing Restless Observation: 1= Difficult to Sit Still Pupil Size: 1= Pupils >than Normal Bone or Joint Aches: 2= Severe Diffuse Aches Runny Nose/ Eye Tearin= Runny Nose/Eyes GI Upset > 30mins: 2= Nausea/Diarrhea Tremor Observation of Outstretched Hands: 2= Slight Tremor Visible Yawning Observation: 1= 1-2x During Session Anxiety or Irritability: 2=Irritable/Anxious Goose Flesh Skin: 3=Piloerection COWS Score: 18 BHS Progress Note (SOAP) Subjective: nausea, sweats, interrupted sleep, anxiety, tremors, body aches, fatigue requesting additional medicaton Objective: 12/15/16 13:00 Vital Signs - 24 hr 12/14/16 12/14/16 12/15/16 19:46 22:00 00:30 Temperature 96.4 F L 97.7 F Pulse Rate 90 92 H Respiratory 20 20 18 Rate Blood Pressure 136/94 149/92 12/15/16 12/15/16 12/15/16 03:30 06:33 09:29 Temperature 97.7 F 97.7 F Pulse Rate 66 82 Respiratory 18 16 18 Rate Blood Pressure 95/54 122/77 Laboratory Tests 12/15/16 12/15/16 07:00 07:00 WBC 9.8 RBC 4.11 Hgb 11.7 Hct 35.9 MCV 87.3 MCH 28.3 MCHC 32.4 RDW 13.0 Plt Count 298 D MPV 8.6 Sodium 141 Potassium 4.3 Chloride 106 Carbon Dioxide 28 Anion Gap 7 L BUN 5 L D Creatinine 0.6 Creat Clearance w eGFR > 60 Random Glucose 94 Calcium 9.8 Total Bilirubin 0.4 AST 9 L ALT 19 Alkaline Phosphatase 71 Total Protein 6.2 L Albumin 3.2 L u/a pending, hypoalbuminemia Assessment: 12/15/16 13:00 withdrawal sx, malnutirtion 2/2 substanceuse and possible liver disease Plan: cont detox, fluids, symptomtic relief
[2016-12-15] MEDS: PANTOPRAZOLE 40 MG TABLET (FP) PO SCH (15:18)
[2016-12-15] MEDS: QUEtiapine FUMARATE 100 MG TABLET (FP) PO SCH (22:34)
[2016-12-15] MEDS: NAPROXEN 500 MG TABLET (FP) PO SCH (22:34)
[2016-12-15] MEDS: ZOLPIDEM TARTRATE 10 MG TABLET (PARK CARE ONLY) PO PRN (22:34)
[2016-12-15] MEDS: THIAMINE HCL 100 MG TABLET (FP) PO SCH (22:37)
[2016-12-16] MEDS: diazePAM 5 MG TABLET PO PRN ×3 (08:56→19:59)
[2016-12-16] MEDS ORDERED: METHADONE HCL 5 MG TABLET (FOR DETOX USE ONLY) PO ONE (10:00)
[2016-12-16] MEDS: CYCLOBENZAPRINE HCL 10 MG TABLET (FP) PO PRN (10:13)
[2016-12-16] MEDS: hydrOXYzine PAMOATE 25 MG CAPSULE (FP) PO PRN (10:13)
[2016-12-16] MEDS: PRENATAL VITAMINS W/ FOLIC ACID TABLET (FP) PO SCH (10:13)
[2016-12-16] MEDS: NAPROXEN 500 MG TABLET (FP) PO SCH ×2 (10:13→22:08)
[2016-12-16] MEDS: cloNIDine HCL 0.1 MG TABLET PO SCH ×2 (10:13→22:14)
[2016-12-16] MEDS: PANTOPRAZOLE 40 MG TABLET (FP) PO SCH (10:13)
[2016-12-16] MEDS: BUDESONIDE/FORMETEROL FUMARATE 80/4.5 mcg INHALER IH SCH ×2 (10:14→22:09)
[2016-12-16] MEDS: NICOTINE 21 MG/24 HOURS TOPICAL PATCH TD SCH (10:14)
--- NOTE | 2016-12-16 11:13 | PN ---
S CIWA - CIWA Score Nausea/Vomitin Muscle Tremors: 3 Anxiety: 3 Agitation: 3 Paroxysmal Sweats: 1-Minimal Palms Moist Orientation: 0-Oriented Tacttile Disturbances: 1-Very Mild Itch/Numbness Auditory Disturbances: 1-Very Mild Visual Disturbances: 1-Very Mild Sensitivity Headache: 2-Mild CIWA-Ar Total Score: 18 BHS COWS - Scale Resting Pulse: 0= [place] 80 or Below Sweatin= Chills/Flushing Restless Observation: 3= Extraneous Movement Pupil Size: 1= Pupils >than Normal Bone or Joint Aches: 2= Severe Diffuse Aches Runny Nose/ Eye Tearin= Runny Nose/Eyes GI Upset > 30mins: 3= Vomiting/Diarrhea Tremor Observation of Outstretched Hands: 2= Slight Tremor Visible Yawning Observation: 1= 1-2x During Session Anxiety or Irritability: 2=Irritable/Anxious Goose Flesh Skin: 0=Smooth Skin COWS Score: 17 S Progress Note (SOAP) Subjective: ALERT,IRRITABLE,ANXIOUS,PAIN IN THE BODY AND BACK,TREMOR Objective: 12/16/16 11:11 Vital Signs Temperature 96.7 F L 12/16/16 09:56 Pulse Rate 80 12/16/16 09:56 Respiratory Rate 18 12/16/16 09:56 Blood Pressure 114/90 12/16/16 09:56 O2 Sat by Pulse Oximetry (%) Laboratory Last Values WBC 9.8 K/mm3 (4.0-10.0) 12/15/16 07:00 RBC 4.11 M/mm3 (3.60-5.2) 12/15/16 07:00 Hgb 11.7 GM/dL (10.7-15.3) 12/15/16 07:00 Hct 35.9 % (32.4-45.2) 12/15/16 07:00 MCV 87.3 fl (80-96) 12/15/16 07:00 MCH 28.3 pg (25.7-33.7) 12/15/16 07:00 MCHC 32.4 g/dl (32.0-36.0) 12/15/16 07:00 RDW 13.0 % (11.6-15.6) 12/15/16 07:00 Plt Count 298 K/MM3 (134-434) D 12/15/16 07:00 MPV 8.6 fl (7.5-11.1) 12/15/16 07:00 Sodium 141 mmol/L (136-145) 12/15/16 07:00 Potassium 4.3 mmol/L (3.5-5.1) 12/15/16 07:00 Chloride 106 mmol/L (98-107) 12/15/16 07:00 Carbon Dioxide 28 mmol/L (21-32) 12/15/16 07:00 Anion Gap 7 (8-16) L 12/15/16 07:00 BUN 5 mg/dL (7-18) L D 12/15/16 07:00 Creatinine 0.6 mg/dL (0.55-1.02) 12/15/16 07:00 Creat Clearance w eGFR > 60 (>60) 12/15/16 07:00 Random Glucose 94 mg/dL (74-106) 12/15/16 07:00 Calcium 9.8 mg/dL (8.5-10.1) 12/15/16 07:00 Total Bilirubin 0.4 mg/dL (0.2-1.0) 12/15/16 07:00 AST 9 U/L (15-37) L 12/15/16 07:00 ALT 19 U/L (12-78) 12/15/16 07:00 Alkaline Phosphatase 71 U/L (45-117) 12/15/16 07:00 Total Protein 6.2 g/dl (6.4-8.2) L 12/15/16 07:00 Albumin 3.2 g/dl (3.4-5.0) L 12/15/16 07:00 RPR Titer Nonreactive (NONREACTIVE) 12/15/16 07:00 Assessment: 12/16/16 11:12 WITHDRAWAL SYMPTOM Plan: CONTINUE DETOX
[2016-12-16] MEDS: QUEtiapine FUMARATE 100 MG TABLET (FP) PO SCH (22:08)
[2016-12-16] MEDS: THIAMINE HCL 100 MG TABLET (FP) PO SCH (22:08)
[2016-12-16] MEDS: ZOLPIDEM TARTRATE 10 MG TABLET (PARK CARE ONLY) PO PRN (22:08)
[2016-12-17] MEDS: diazePAM 5 MG TABLET PO PRN ×4 (01:29→19:35)
[2016-12-17] MEDS ORDERED: METHADONE HCL 5 MG TABLET (FOR DETOX USE ONLY) PO ONE (10:00)
[2016-12-17] MEDS: PRENATAL VITAMINS W/ FOLIC ACID TABLET (FP) PO SCH (10:10)
[2016-12-17] MEDS: cloNIDine HCL 0.1 MG TABLET PO SCH ×2 (10:10→22:03)
[2016-12-17] MEDS: NICOTINE 21 MG/24 HOURS TOPICAL PATCH TD SCH (10:11)
[2016-12-17] MEDS: PANTOPRAZOLE 40 MG TABLET (FP) PO SCH (10:11)
[2016-12-17] MEDS: hydrOXYzine PAMOATE 25 MG CAPSULE (FP) PO PRN (10:11)
[2016-12-17] MEDS: NAPROXEN 500 MG TABLET (FP) PO SCH ×2 (10:11→22:03)
[2016-12-17] MEDS: BUDESONIDE/FORMETEROL FUMARATE 80/4.5 mcg INHALER IH SCH ×2 (10:12→22:01)
--- NOTE | 2016-12-17 10:45 | PN ---
BHS Progress Note (SOAP) Subjective: nausea, sweats, interrupted sleep, anxiety, tremors Objective: 12/17/16 10:44 Vital Signs - 8 hr 12/17/16 12/17/16 12/17/16 03:30 06:00 09:55 Temperature 97.7 F 97.9 F Pulse Rate 80 105 H Respiratory 18 18 18 Rate Blood Pressure 128/72 152/94 Laboratory Tests 12/15/16 12/15/16 12/15/16 07:00 07:00 07:00 WBC 9.8 RBC 4.11 Hgb 11.7 Hct 35.9 MCV 87.3 MCH 28.3 MCHC 32.4 RDW 13.0 Plt Count 298 D MPV 8.6 Sodium 141 Potassium 4.3 Chloride 106 Carbon Dioxide 28 Anion Gap 7 L BUN 5 L D Creatinine 0.6 Creat Clearance w eGFR > 60 Random Glucose 94 Calcium 9.8 Total Bilirubin 0.4 AST 9 L ALT 19 Alkaline Phosphatase 71 Total Protein 6.2 L Albumin 3.2 L RPR Titer Nonreactive u/a pending Assessment: 12/17/16 10:44 withdrawal sx Plan: cont detox, u/a fluids
[2016-12-17 21:59] LABS: URINE APPEARANCE CLOUDY; URINE BILIRUBIN NEGATIVE (NEGATIVE); URINE BLOOD NEGATIVE (NEGATIVE); URINE COLOR LTYELLOW; URINE GLUCOSE (UA) NEGATIVE (NEGATIVE); URINE KETONE NEGATIVE (NEGATIVE); URINE LEUK ESTERASE NEGATIVE (NEGATIVE); URINE NITRITE NEGATIVE (NEGATIVE); URINE PROTEIN NEGATIVE (NEGATIVE); URINE UROBILINOGEN NEGATIVE mg/dL (0.2-1.0)
[2016-12-17] MEDS: THIAMINE HCL 100 MG TABLET (FP) PO SCH (22:02)
[2016-12-17] MEDS: ZOLPIDEM TARTRATE 10 MG TABLET (PARK CARE ONLY) PO PRN (22:03)
[2016-12-17] MEDS: QUEtiapine FUMARATE 100 MG TABLET (FP) PO SCH (22:03)
[2016-12-17] MEDS: CYCLOBENZAPRINE HCL 10 MG TABLET (FP) PO PRN (22:03)
[2016-12-18] MEDS ORDERED: METHADONE HCL 10 MG TABLET (FOR DETOX USE ONLY) PO ONE (10:00)
--- NOTE | 2016-12-18 10:08 | PN ---
BHS Progress Note (SOAP) Subjective: naUSEA, SWEATS, INTERRUPTED SLEEP, ANXIETY, TREMORS Objective: 12/18/16 10:07 Vital Signs - 8 hr 12/18/16 12/18/16 03:30 06:14 Temperature 98.2 F Pulse Rate 79 Respiratory 18 18 Rate Blood Pressure 136/84 Laboratory Tests 12/15/16 12/15/16 12/15/16 07:00 07:00 07:00 WBC 9.8 RBC 4.11 Hgb 11.7 Hct 35.9 MCV 87.3 MCH 28.3 MCHC 32.4 RDW 13.0 Plt Count 298 D MPV 8.6 Sodium 141 Potassium 4.3 Chloride 106 Carbon Dioxide 28 Anion Gap 7 L BUN 5 L D Creatinine 0.6 Creat Clearance w eGFR > 60 Random Glucose 94 Calcium 9.8 Total Bilirubin 0.4 AST 9 L ALT 19 Alkaline Phosphatase 71 Total Protein 6.2 L Albumin 3.2 L Urine Color Urine Appearance Urine pH Urine Protein Urine Glucose (UA) Urine Ketones Urine Blood Urine Nitrite Urine Bilirubin Urine Urobilinogen Ur Leukocyte Esterase RPR Titer Nonreactive 12/17/16 13:10 WBC RBC Hgb Hct MCV MCH MCHC RDW Plt Count MPV Sodium Potassium Chloride Carbon Dioxide Anion Gap BUN Creatinine Creat Clearance w eGFR Random Glucose Calcium Total Bilirubin AST ALT Alkaline Phosphatase Total Protein Albumin Urine Color Ltyellow Urine Appearance Cloudy Urine pH 6.0 Urine Protein Negative Urine Glucose (UA) Negative Urine Ketones Negative Urine Blood Negative Urine Nitrite Negative Urine Bilirubin Negative Urine Urobilinogen Negative Ur Leukocyte Esterase Negative RPR Titer Assessment: 12/18/16 10:07 withdrawal sx Plan: cont detox
[2016-12-18] MEDS: PRENATAL VITAMINS W/ FOLIC ACID TABLET (FP) PO SCH (10:13)
[2016-12-18] MEDS: hydrOXYzine PAMOATE 25 MG CAPSULE (FP) PO PRN ×2 (10:14→15:09)
[2016-12-18] MEDS: PANTOPRAZOLE 40 MG TABLET (FP) PO SCH (10:14)
[2016-12-18] MEDS: NAPROXEN 500 MG TABLET (FP) PO SCH ×2 (10:14→22:22)
[2016-12-18] MEDS: cloNIDine HCL 0.1 MG TABLET PO SCH ×2 (10:14→22:21)
[2016-12-18] MEDS: NICOTINE 21 MG/24 HOURS TOPICAL PATCH TD SCH (10:14)
[2016-12-18] MEDS: BUDESONIDE/FORMETEROL FUMARATE 80/4.5 mcg INHALER IH SCH ×2 (10:15→22:22)
[2016-12-18] MEDS: THIAMINE HCL 100 MG TABLET (FP) PO SCH (22:22)
[2016-12-18] MEDS: QUEtiapine FUMARATE 100 MG TABLET (FP) PO SCH (22:22)
[2016-12-19] MEDS ORDERED: METHADONE HCL 5 MG TABLET (FOR DETOX USE ONLY) PO ONE (06:00)
[2016-12-19 06:30] VITALS: BP 101/53; PULSE 82; TEMP 97.9
--- NOTE | 2016-12-19 09:56 | DS ---
[facility] Detox Discharge Summary Admission Date: 12/14/16 Discharge Date: 12/19/16 - History Present History: Opioid Dependence Pertinent Past History: PCP abuse, h/o alcohol abuse/dependence no longer drinking, nicotine dependence , insomnia, anxiety, depression - Physical Exam Results Vital Signs: Vital Signs Temperature 97.9 F 12/19/16 06:30 Pulse Rate 82 12/19/16 06:30 Respiratory Rate 18 12/19/16 06:30 Blood Pressure 101/53 12/19/16 06:30 O2 Sat by Pulse Oximetry (%) Laboratory Tests 12/15/16 12/15/16 12/15/16 07:00 07:00 07:00 WBC 9.8 RBC 4.11 Hgb 11.7 Hct 35.9 MCV 87.3 MCH 28.3 MCHC 32.4 RDW 13.0 Plt Count 298 D MPV 8.6 Sodium 141 Potassium 4.3 Chloride 106 Carbon Dioxide 28 Anion Gap 7 L BUN 5 L D Creatinine 0.6 Creat Clearance w eGFR > 60 Random Glucose 94 Calcium 9.8 Total Bilirubin 0.4 AST 9 L ALT 19 Alkaline Phosphatase 71 Total Protein 6.2 L Albumin 3.2 L Urine Color Urine Appearance Urine pH Ur Specific [place] Urine Protein Urine Glucose (UA) Urine Ketones Urine Blood Urine Nitrite Urine Bilirubin Urine Urobilinogen Ur Leukocyte Esterase RPR Titer Nonreactive 12/17/16 13:10 WBC RBC Hgb Hct MCV MCH MCHC RDW Plt Count MPV Sodium Potassium Chloride Carbon Dioxide Anion Gap BUN Creatinine Creat Clearance w eGFR Random Glucose Calcium Total Bilirubin AST ALT Alkaline Phosphatase Total Protein Albumin Urine Color Ltyellow Urine Appearance Cloudy Urine pH 6.0 Ur Specific [place] 1.010 Urine Protein Negative Urine Glucose (UA) Negative Urine Ketones Negative Urine Blood Negative Urine Nitrite Negative Urine Bilirubin Negative Urine Urobilinogen Negative Ur Leukocyte Esterase Negative RPR Titer Pertinent Admission Physical Exam Findings: withdrawal sx - Treatment Hospital Course: Detox Protocol Followed, Detoxed Safely, Responded well, Discharged Condition Good, Rehab Referral Accepted - Medication Discharge Medications: Ambulatory Orders Albuterol Sulfate Inhaler - [Ventolin HFA Inhaler -] 2 puff IH Q4HPO PRN #1 inhaler 09/10/15 Budesonide/Formeterol Fumarate [SYMBICORT 80/4.5mcg -] 1 puff IH BID #1 inhaler 09/10/15 Quetiapine Fumarate [Seroquel] 100 mg PO HS #30 tablet 11/10/16 Quetiapine Fumarate [Seroquel] 100 tab PO HS #30 tablet 12/15/16 - Diagnosis (1) Dermatillomania Current Visit: Yes Status: Chronic (2) PCP abuse Current Visit: Yes Status: Acute (3) Uncomplicated sedative, hypnotic or anxiolytic withdrawal Current Visit: Yes Status: Chronic (4) Abscess or cellulitis of shoulder Current Visit: No Status: Acute (5) Cannabis dependence Current Visit: Yes Status: Inactive (6) Cocaine dependence Current Visit: Yes Status: Chronic Qualifiers: Substance use status: uncomplicated Qualified Code(s): F14.20 - Cocaine dependence, uncomplicated (7) Drug-induced mood disorder Current Visit: No Status: Acute (8) Nicotine dependence Current Visit: Yes Status: Chronic Qualifiers: Nicotine product type: cigarettes Substance use status: uncomplicated Qualified Code(s): F17.210 - Nicotine dependence, cigarettes, uncomplicated (9) Opioid dependence with withdrawal Current Visit: No Status: Acute (10) Substance induced mood disorder Current Visit: No Status: Acute (11) Uncomplicated opioid dependence Current Visit: No Status: Acute (12) Alcohol dependence with uncomplicated withdrawal Current Visit: No Status: Chronic (13) Anxiety Current Visit: No Status: Chronic (14) Asthma Current Visit: No Status: Chronic Qualifiers: Asthma severity: mild intermittent Asthma complication type: uncomplicated Qualified Code(s): J45.20 - Mild intermittent asthma, uncomplicated (15) Chronic back pain Current Visit: No Status: Inactive Qualifiers: Back pain laterality: unspecified - AMA Did Patient Leave Against Medical Advice: No
== END 2016-12-19 10:19 | disposition home or self-care (01) | DRG 773 ==
LOC: YASAS 18:05 → Y6N 20:48
PROVIDERS: ADMIT Internal Medicine Addiction Medicine; ATTEND Internal Medicine Addiction Medicine
PROC: HZ2ZZZZ Detoxification Services for Substance Abuse Treatment (ICD-10-PCS; principal; 2016-12-14)
DX: F11.23 Opioid dependence with withdrawal (principal); F13.230 Sedative, hypnotic or anxiolytic dependence with withdrawal, uncomplicated; F14.20 Cocaine dependence, uncomplicated; F16.10 Hallucinogen abuse, uncomplicated; F17.210 Nicotine dependence, cigarettes, uncomplicated; F19.24 Other psychoactive substance dependence with psychoactive substance-induced mood disorder; F41.9 Anxiety disorder, unspecified; J45.20 Mild intermittent asthma, uncomplicated; M54.5 Low back pain; G89.29 Other chronic pain; G47.00 Insomnia, unspecified; E88.09 Other disorders of plasma-protein metabolism, not elsewhere classified; L98.1 Factitial dermatitis
CPT/HCPCS: 36415; 80053; 81003; 85027; 86593; 93005; 93010

== ENCOUNTER 2017-12-05 21:11 | Inpatient (IN) | payer OTHER ==
--- NOTE | 2017-12-05 21:15 | PDOC ---
Rapid Medical Evaluation Time Seen by Provider: 12/05/17 21:12 Medical Evaluation: Allergies Allergy/AdvReac Type Severity Reaction Status Date / Time No Known Allergies Allergy Verified 12/14/16 21:04 12/05/17 21:12 I have performed a brief in-person evaluation of this patient. The patient presents with a chief complaint of: fevers Pertinent physical exam findings: multiple open sore to b/l arms. Open draining abscess to left AC. I have ordered the following: labs, urine, cxr, cultures The patient will proceed to the ED for further evaluation. Discharge Disposition - Diagnosis Fever - Referrals - Patient Instructions - Post Discharge Activity
[2017-12-05 22:08] LABS: BASO % 0.4 % (0-2.0); EOS % 0.8 % (0-4.5); HEMATOCRIT 33.3 % (32.4-45.2); HEMOGLOBIN 11.1 GM/dL (10.7-15.3); LYMPH % 15.6 % (8-40); MCH 28.6 pg (25.7-33.7); MCHC 33.4 g/dl (32.0-36.0); MEAN CELL VOLUME 85.5 fl (80-96); MEAN PLT VOLUME 8.8 fl (7.5-11.1); MONO % 2.4 % (3.8-10.2); NEUT % 80.8 % (42.8-82.8); PLATELET COUNT 236 K/MM3 (134-434); RDW 13.9 % (11.6-15.6); WHITE BLOOD COUNT 7.3 K/mm3 (4.0-10.0)
--- NOTE | 2017-12-05 22:26 | PDOC ---
History of Present Illness - General Chief Complaint: Abscess Boil Stated Complaint: FEVER Time Seen by Provider: 12/05/17 21:12 History Source: Patient Exam Limitations: No Limitations - History of Present Illness Initial Comments: 12/05/17 22:20 HISTORY OF PRESENT ILLNESS: This is a 32-year-old woman with past medical history of asthma presents emergency Department with fevers, chills, abscess to her left before meals for one week. Patient states the abscess on her left arm started draining spontaneously today. Patient reports a recent stay in long- term drug rehabilitation and upon discharge was found to be HIV negative. Patient denies any sharing needles since her discharge. Patient also is requesting staple removal as she had carissa placed at [facility] 7 days prior to arrival. No recent travel or sick contacts. PAST MEDICAL HISTORY: Asthma FAMILY HISTORY: Denies SOCIAL HISTORY: Denies tobacco, alcohol. IV cocaine and heroin. SURGICAL HISTORY: Denies ALLERGIES: No known drug allergies REVIEW OF SYSTEMS General/Constitutional: Denies fever or chills. Denies weakness, weight change. HEENT: Denies change in vision. Denies ear pain or discharge. Denies sore throat. Cardiovascular: Denies chest pain or shortness of breath. Respiratory: Denies cough, wheezing, or hemoptysis. Gastrointestinal: Denies nausea, vomiting, diarrhea or constipation. Denies rectal bleeding. Genitourinary: Denies dysuria, frequency, or change in urination. Musculoskeletal: Denies joint or muscle swelling or pain. Denies neck or back pain. Skin and breasts: Denies rash or easy bruising. Neurologic: Denies headache, vertigo, loss of consciousness, or loss of sensation. Psychiatric: Denies depression or anxiety. Endocrine: Denies increased thirst. Denies abnormal weight change. Hematologic/Lymphatic: Denies anemia, easy bleeding, or history of blood clots. Allergic/Immunologic: Denies hives or skin allergy. Denies latex allergy. PHYSICAL EXAM General Appearance: Well-appearing, appropriately dressed. No apparent distress , no intoxication. HEENT: EOMI, PERRLA, normal ENT inspection, normal voice, TMs normal, pharynx normal. No conjunctival pallor. No photophobia, scleral icterus. Neck: Supple. Trachea midline. No tenderness, rigidity, carotid bruit, stridor , lymphadenopathy, or thyromegaly. Respiratory/Chest: Lungs CTAB. No shortness of breath, chest tenderness, respiratory distress, accessory muscle use. No crackles, rales, rhonchi, stridor , wheezing, dullness Cardiovascular: RRR. S1, S2. No JVD, murmur, bradycardia, tachycardia. Vascular Pulses: Dorsalis-Pedis (R): 2+, Dorsalis-Pedis (L): 2+ Gastrointestinal/Abdominal: Normal bowel sounds. Abdomen soft, non-distended. No tenderness or rebound tenderness. No organomegaly, pulsatile mass, guarding , hernia, hepatomegaly, splenomegaly. Lymphatic: No adenopathy, tenderness. Musculoskeletal/Extremities: Normal inspection. FROM of all extremities, normal capillary refill. Pelvis Stable. No CVA tenderness. No tenderness to extremities, pedal edema, swelling, erythema or deformity. Integumentary: Multiple circular lesions noted to bilateral upper extremities and face. One singular abscess present to the lateral aspect of the left antecubital. 7 carissa noted to the left posterior parietal area Neurologic: pullman car clerk II-XII intact. Fully oriented, alert. Appropriate mood/affect. Motor strength 5/5. No appreciable EOM palsy, facial droop or sensory deficit. Past History - Past Medical History Allergies/Adverse Reactions: Allergies Allergy/AdvReac Type Severity Reaction Status Date / Time vancomycin Allergy Verified 12/05/17 21:16 Home Medications: Ambulatory Orders Albuterol Sulfate Inhaler - [Ventolin HFA Inhaler -] 2 puff IH Q4HPO PRN #1 inhaler 09/10/15 Budesonide/Formeterol Fumarate [SYMBICORT 80/4.5mcg -] 1 puff IH BID #1 inhaler 09/10/15 Quetiapine Fumarate [Seroquel] 100 mg PO HS #30 tablet 11/10/16 Quetiapine Fumarate [Seroquel] 100 tab PO HS #30 tablet 12/15/16 Anemia: No Asthma: Yes Cancer: No Cardiac Disorders: No CVA: No COPD: No CHF: No Dementia: No Diabetes: No GI Disorders: No Disorders: No HTN: Yes (no med) Hypercholesterolemia: No Kidney Stones: No Liver Disease: No Psychiatric Problems: Yes (ANXIETY) Seizures: No Thyroid Disease: No - Surgical History Abdominal Surgery: No Appendectomy: No Cardiac Surgery: No Cholecystectomy: No Lung Surgery: No Neurologic Surgery: No Orthopedic Surgery: No - Reproductive History PID: No - Immunization History Immunization Up to Date: Yes - Suicide/Smoking/Psychosocial Hx Smoking History: Current every day smoker Have you smoked in the past 12 months: Yes Number of Cigarettes Smoked Daily: 10 Information on smoking cessation initiated: Yes 'Breaking Loose' booklet given: 12/14/16 Hx Alcohol Use: No Drug/Substance Use Hx: Yes (HEROIN) Substance Use Type: Cocaine, Heroin, Tranquilizers Hx Substance Use Treatment: Yes ([facility] 11/08/16 to 11/13/16) *Physical Exam - Vital Signs Last Vital Signs Temp Pulse Resp BP Pulse Ox 99.5 F 112 H 18 117/53 100 12/05/17 21:12 12/05/17 21:12 12/05/17 21:12 12/05/17 21:12 12/05/17 21:12 ED Treatment Course - LABORATORY CBC & Chemistry Diagram: 12/05/17 21:45 12/05/17 21:45 - RADIOLOGY Radiology Studies Ordered: Category Date Time Status CHEST PA & LAT [RAD] Stat Radiology 12/05/17 21:15 Ordered Medical Decision Making - Medical Decision Making 12/05/17 22:26 A/P: 32-year-old woman with subjective fevers and chills with left antecubital abscess Abscess in the left antecubital self draining without any fluctuance Multiple other skin lesions consistent with MRSA infection 7 sutures noted in the left posterior parietal region. Staple line well approximated without erythema, discharge or drainage noted DDx: Acute HIV infection, sepsis, abscess Sepsis workup with HIV testing, staple removal, reassess 12/05/17 23:34 Chest x-rays read by me: Lungs clear without infiltrate or consolidations noted. Angles clear. Cardiac silhouette is within normal limits. Laboratory testing reveals no white count but does have a elevated lactic acid at 2.7. Normal saline bolus. IV antibiotics Admit 12/06/17 00:53 Case discussed with who accepts patient for [facility] admission *DC/Admit/Observation/Transfer Diagnosis at time of Disposition: Sepsis - Discharge Dispostion Condition at time of disposition: Fair Decision to Admit order: Yes - Referrals - Patient Instructions - Post Discharge Activity
[2017-12-05 22:54] LABS: ALBUMIN 3.2 g/dl (3.4-5.0); ANION GAP 8 MMOL/L (8-16); BLOOD UREA NITROGEN 7 mg/dL (7-18); CALCIUM 8.4 mg/dL (8.5-10.1); CHLORIDE 101 mmol/L (98-107); CO2 29 mmol/L (21-32); CREATININE 0.9 mg/dL (0.55-1.02); GLUCOSE,RANDOM 140 mg/dL (74-106); POTASSIUM 3.9 mmol/L (3.5-5.1); SGOT/AST 16 U/L (15-37); SGPT/ALT 24 U/L (12-78); SODIUM 138 mmol/L (136-145)
[2017-12-05 22:56] LABS: ALK PHOS 77 U/L (45-117); BILIRUBIN,TOTAL 0.3 mg/dL (0.2-1.0); TOT PROT 6.4 g/dl (6.4-8.2)
[2017-12-05] MEDS ORDERED: SODIUM CHLORIDE 1,000 ML IV STA (23:05)
[2017-12-05 23:23] LABS: URINE APPEARANCE CLEAR; URINE BILIRUBIN NEGATIVE (<2.0 mg/dL); URINE COLOR STRAW; URINE GLUCOSE (UA) NEGATIVE (NEGATIVE); URINE KETONE NEGATIVE (NEGATIVE); URINE LEUK ESTERASE NEGATIVE (NEGATIVE); URINE NITRITE NEGATIVE (NEGATIVE); URINE PROTEIN NEGATIVE (NEGATIVE); URINE UROBILINOGEN NEGATIVE mg/dL (0.2-1.0)
[2017-12-05 23:33] LABS: HCG,QUALITATIVE URINE Negative
[2017-12-06] MEDS ORDERED: CLINDAMYCIN 900 MG PREMIX IVPB 900 MG/50 ML BAG IVPB ONE ×2 (00:32→01:00)
[2017-12-06] MEDS ORDERED: AMPICILLIN NA/SULBACTAM NA 3 GM in SODIUM CHLORIDE 100 ML IVPB ONE (00:32)
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
[2017-12-06 02:43] LABS: ANION GAP 7 MMOL/L (8-16); BLOOD UREA NITROGEN 9 mg/dL (7-18); CALCIUM 8.1 mg/dL (8.5-10.1); CHLORIDE 106 mmol/L (98-107); CO2 28 mmol/L (21-32); CREATININE 0.8 mg/dL (0.55-1.02); GLUCOSE,RANDOM 122 mg/dL (74-106); PHOSPHOROUS 3.7 mg/dL (2.5-4.9); SODIUM 141 mmol/L (136-145)
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
[2017-12-06 02:58] LABS: MAGNESIUM 2.1 mg/dL (1.8-2.4); POTASSIUM 3.7 mmol/L (3.5-5.1)
[2017-12-06] MEDS: clonazePAM 0.5 MG TABLET PO PRN ×4 (03:23→21:36)
[2017-12-06] MEDS: SODIUM CHLORIDE 1,000 ML IV SCH ×2 (03:27→04:16)
[2017-12-06 03:58] VITALS: BMI 29.3
[2017-12-06] MEDS ORDERED: ALBUTEROL SO4 8 GM HFA INHALER IH PRN (06:19)
--- NOTE | 2017-12-06 08:45 | CONSULT ---
Consult Consult Specialty:: Hand and Microsurgery Reason for Consultation:: Left arm abscess - History of Present Illness Chief Complaint: Left arm pain and swelling History of Present Illness: 32 yo RHD female PMH IVDA and asthma presents emergency department with fevers, chills, abscess in her left arm for one week. Patient states the abscess on her left arm started draining spontaneously today. Patient reports a recent stay in long-term drug rehabilitation and upon discharge was found to be HIV negative. Patient denies any sharing needles since her discharge. Patient also is requesting staple removal as she had carissa placed at [facility] 7 days prior to arrival. We were asked to assess. - Past Medical History Pulmonary: Yes: Asthma ...LMP: 11/29/17 ...: No - Alcohol/Substance Use Hx Alcohol Use: No History of Substance Use: reports: Heroin - Smoking History Smoking history: Current every day smoker Have you smoked in the past 12 months: Yes Aproximately how many cigarettes per day: 10 - Social History Usual Living Arrangement: Alone ADL: Support Services (Drug Rehab) Place of : [facility] History of Recent Travel: No Home Medications - Allergies Allergies/Adverse Reactions: Allergies Allergy/AdvReac Type Severity Reaction Status Date / Time vancomycin Allergy Verified 12/05/17 21:16 - Home Medications Home Medications: Ambulatory Orders Albuterol Sulfate Inhaler - [Ventolin HFA Inhaler -] 2 puff IH Q4HPO PRN #1 inhaler 09/10/15 Budesonide/Formeterol Fumarate [SYMBICORT 80/4.5mcg -] 1 puff IH BID #1 inhaler 09/10/15 Quetiapine Fumarate [Seroquel] 100 mg PO HS #30 tablet 11/10/16 Quetiapine Fumarate [Seroquel] 100 tab PO HS #30 tablet 12/15/16 Family Disease History - Family Disease History Family Disease History: Diabetes: Grandparent, Other: Mother (heroin abuse - , psych), Brother (heroin abuse ), Sister (heroin use with one half sister) Review of Systems - Review of Systems Constitutional: reports: Chills, Fever Eyes: denies: Blind Spots, Recent Change in Vision HENT: denies: Difficult Swallowing, Toothache Neck: denies: Stiffness, Swollen Glands Cardiovascular: denies: Chest Pain, Palpitations Respiratory: denies: Cough, SOB Gastrointestinal: denies: Abdominal Pain, Constipation, Diarrhea Genitourinary: denies: Discharge, Dysuria Breasts: reports: No Symptoms Reported. denies: Pain Musculoskeletal: reports: Extremity Pain. denies: Muscle Pain, Muscle Weakness Integumentary: reports: Erythema (Left arm), Lesions (multiple tract marie). denies: Rash Neurological: denies: Seizure, Syncope Endocrine: denies: Unexplained Weight Gain, Unexplained Weight Loss Hematology/Lymphatic: denies: Easily Bruised, Excessive Bleeding Psychiatric: reports: Anxiety. denies: Paranoia, Suicidal Physical Exam Vital Signs: Vital Signs Temperature 98.9 F 12/06/17 02:08 Pulse Rate 76 12/06/17 02:30 Respiratory Rate 18 12/06/17 02:30 Blood Pressure 127/69 12/06/17 02:30 O2 Sat by Pulse Oximetry (%) 99 12/06/17 02:08 Constitutional: Yes: Well Nourished, No Distress, Calm Eyes: Yes: Conjunctiva Clear, EOM Intact HENT: Yes: Atraumatic, Normocephalic Neck: Yes: Supple, Trachea Midline Cardiovascular: Yes: Regular Rate and Rhythm, S1, S2 Respiratory: Yes: Regular, CTA Bilaterally Gastrointestinal: Yes: Normal Bowel Sounds, Soft. No: Tenderness, Tenderness, Epigastrium ...Rectal Exam: Yes: Deferred Renal/: No: CVA Tenderness - Left, CVA Tenderness - Right Musculoskeletal: No: Muscle Pain, Muscle Weakness Extremities: Yes: Erythema (Left antecubital fossa). No: Cool, Cyanosis Edema: Yes Edema: LUE: 1+ (left antecubital ) Peripheral Pulses WNL: Yes Integumentary: Yes: Erythema (3X4cm areas of erythema left antecubital fossa radial aspect, +fluctrance), Other (Multiple tract marie both arms). No: Jaundice Neurological: Yes: Alert, Oriented Psychiatric: Yes: Alert, Oriented Labs: CBC, BMP 12/05/17 21:45 12/06/17 01:51 Imaging - Results X-ray: Pending Ultrasound: Report Reviewed (fluid collection left antecubital fossa), Image Reviewed Problem List - Problems (1) Abscess of antecubital fossa Assessment/Plan: 32yo RHD female IVDA with left antecubital abscess partially spontaneously draining NPO and IVF hydration IV antibiotics will need I&D of Left antecubital fossa abscess Discussed with patient risks, benefits and alternatives of aforementioned procedure, including but not limited to bleeding, infection, injury to adjacent structures, loss of function, amputation, need for further procedures, ; alternatives include antibiotics, delayed or no surgery - risks of this include failure of nonoperative therapy, worsening sepsis, recurrence, . Patient desires to proceed with operation - will take to OR for above. Informed consent signed for same. Code(s): L02.419 - CUTANEOUS ABSCESS OF LIMB, UNSPECIFIED (2) Sepsis Code(s): A41.9 - SEPSIS, UNSPECIFIED ORGANISM Qualifiers: Sepsis type: sepsis due to unspecified organism Qualified Code(s): A41.9 - Sepsis, unspecified organism (3) Drug-induced mood disorder Code(s): F19.94 - OTH PSYCHOACTIVE SUBSTANCE USE, UNSP W MOOD DISORDER (4) Opioid dependence with withdrawal Code(s): F11.23 - OPIOID DEPENDENCE WITH WITHDRAWAL (5) Anxiety Code(s): F41.9 - ANXIETY DISORDER, UNSPECIFIED (6) Asthma Code(s): J45.909 - UNSPECIFIED ASTHMA, UNCOMPLICATED Qualifiers: Asthma severity: mild intermittent Asthma complication type: uncomplicated Qualified Code(s): J45.20 - Mild intermittent asthma, uncomplicated
[2017-12-06] MEDS: ENOXAPARIN NA (PORCINE) 40 MG/0.4 ML DISP.SYRIN SQ SCH (10:03)
[2017-12-06] MEDS: CLINDAMYCIN 600MG PREMIX IVPB 600 MG/50 ML BAG IVPB SCH ×2 (10:06→18:07)
[2017-12-06] MEDS: NICOTINE 14 MG/24 HOURS TOPICAL PATCH TD SCH (10:09)
[2017-12-06 11:04] LABS: HEMATOCRIT 32.6 % (32.4-45.2); HEMOGLOBIN 10.8 GM/dL (10.7-15.3); MCH 28.4 pg (25.7-33.7); MCHC 33.2 g/dl (32.0-36.0); MEAN CELL VOLUME 85.5 fl (80-96); MEAN PLT VOLUME 8.9 fl (7.5-11.1); PLATELET COUNT 185 K/MM3 (134-434); RBC 3.82 M/mm3 (3.60-5.2); RDW 13.6 % (11.6-15.6); WHITE BLOOD COUNT 4.7 K/mm3 (4.0-10.0)
--- NOTE | 2017-12-06 11:17 | PN ---
Physical Exam: SUBJECTIVE: Patient seen and examined at bedside. No acute complaints. Afebrile , no significant pain at abscess site. Highly anxious about entering withdrawal and requests methadone. Highly anxious about undergoing Sx. OBJECTIVE: Vital Signs Period Temp Pulse Resp BP Sys/Emanuel Pulse Ox Last 24 Hr 98.0 F-99.5 F 76-112 18-20 117-127/53-69 99-100 GENERAL: Awake, A&Ox3, NAD HEAD: Normocephalic, well healing laceration on posterior scalp, carissa removed , no drainage or blood EYES: PERRLA, EOMI, no scleral icterus EARS, NOSE, THROAT: oropharynx clear without exudates. Moist mucous membranes. NECK: supple without lymphadenopathy LUNGS: CTA b/l, no crackles or wheezes HEART: Regular rate and rhythm, normal S1 and S2 without murmur, rub or gallop. ABDOMEN: Soft, nontender to palpation, normoactive bowel sounds MUSCULOSKELETAL: No bony deformities or tenderness. No CVA tenderness. No spinal tenderness. EXTREMITIES: LUE abscess nondraining, 5X4 cm indurated area of left AC fossa, erythematous without additional warmth; 2+ pulses, warm, well-perfused. No cyanosis. No clubbing. NEUROLOGICAL: Cranial nerves II-XII grossly intact. Normal speech. PSYCHIATRIC: Cooperative. Good eye contact. Appropriate mood and affect. Anxious. SKIN: Numerous scabs/abrasions diffusely throughout body, range in size from 0.5 cm to 5-6 cm. Warm, dry, normal turgor, no rashes Laboratory Results - last 24 hr 12/05/17 12/05/17 12/05/17 21:45 21:45 21:45 WBC 7.3 RBC 3.90 Hgb 11.1 Hct 33.3 MCV 85.5 MCH 28.6 MCHC 33.4 RDW 13.9 Plt Count 236 D MPV 8.8 Absolute Neuts (auto) 5.9 Neutrophils % 80.8 Lymphocytes % 15.6 Monocytes % 2.4 L Eosinophils % 0.8 Basophils % 0.4 Nucleated RBC % 0 Sodium 138 Potassium 3.9 Chloride 101 Carbon Dioxide 29 Anion Gap 8 BUN 7 Creatinine 0.9 Creat Clearance w eGFR > 60 Random Glucose 140 H Lactic Acid 2.7 H* Calcium 8.4 L Phosphorus Magnesium Total Bilirubin 0.3 AST 16 ALT 24 Alkaline Phosphatase 77 Total Protein 6.4 Albumin 3.2 L Urine Color Urine Appearance Urine pH Ur Specific [place] Urine Protein Urine Glucose (UA) Urine Ketones Urine Blood Urine Nitrite Urine Bilirubin Urine Urobilinogen Ur Leukocyte Esterase Urine HCG, Qual 12/05/17 12/06/17 12/06/17 22:46 01:51 10:55 WBC 4.7 RBC 3.82 Hgb 10.8 Hct 32.6 MCV 85.5 MCH 28.4 MCHC 33.2 RDW 13.6 Plt Count 185 D MPV 8.9 Absolute Neuts (auto) Neutrophils % Lymphocytes % Monocytes % Eosinophils % Basophils % Nucleated RBC % Sodium 141 Potassium 3.7 Chloride 106 Carbon Dioxide 28 Anion Gap 7 L BUN 9 Creatinine 0.8 Creat Clearance w eGFR > 60 Random Glucose 122 H Lactic Acid Calcium 8.1 L Phosphorus 3.7 Magnesium 2.1 Total Bilirubin AST ALT Alkaline Phosphatase Total Protein Albumin Urine Color Straw Urine Appearance Clear Urine pH 7.0 Ur Specific [place] 1.002 Urine Protein Negative Urine Glucose (UA) Negative Urine Ketones Negative Urine Blood Negative Urine Nitrite Negative Urine Bilirubin Negative Urine Urobilinogen Negative Ur Leukocyte Esterase Negative Urine HCG, Qual Negative Active Medications Generic Name Dose Route Start Last Admin Trade Name Freq PRN Reason Stop Dose Admin Albuterol Sulfate 2 puff 12/06/17 06:19 Ventolin Hfa Inhaler - IH Q4H PRN SHORT OF BREATH/WHEEZING Clonazepam 0.5 mg 12/06/17 02:37 12/06/17 03:23 Klonopin - PO 0.5 mg TID PRN Administration ANXIETY Enoxaparin Sodium 40 mg 12/06/17 10:00 12/06/17 10:03 Lovenox - SQ Not Given DAILY [facility] Sodium Chloride 1,000 mls @ 75 mls/hr 12/06/17 01:15 12/06/17 04:16 Normal Saline - IV Not Given ASDIR [facility] Clindamycin Phosphate 600 mg in 50 mls @ 100 mls/hr 12/06/17 10:00 12/06/17 10:06 Cleocin 600 Mg Premix Ivpb - IVPB 100 mls/hr Q8H-IV [facility] Administration Protocol Nicotine 14 mg 12/06/17 10:00 12/06/17 10:09 Nicoderm Patch - TD 14 mg DAILY [facility] Administration ASSESSMENT/PLAN: 32 yo female with PMH IDVA, Asthma, Anxiety admitted to med/surg for abscess of left AC Fossa. Abscess -Pt with indurated abscess in left AC fossa, likely MRSA secondary to IVDA -Pt denies sharing any needles -Afebrile, WBC 7.3, Tachycardic, Lactic Acid 2.7 -Not concerned for severe sepsis at this time -Given clinda, unasyn in ED -ID consult ordered -Will continue clinda for now and await further recommendation -BCx and UCx pending -Surgery consult (Dr. Banuelos) appreciated, recommends I&D -Wound Cx to be done in OR -made NPO -Warm compresses PRN Anxiety -Pt states she takes Klonopin 1 mg PO BID for anxiety -Pt with abrasions and scabs all over which she attributes to picking at herself when anxious -Will start smaller dose more frequently, Klonopin 0.5mg TID until can be verified by pharmacy Elevated Blood Glucose -Pt denies any hx of Diabetes, Glucose 140 on admission improved to 122, will monitor -Will check A1C Chronic IV Drug Abuse -Pt has been using for 3 years -Recent use of heroin, cocaine, PCP (all three positive on toxicology) -Pt expresses great concern about her drug use and her desire to quit in order to improve her life and for her daughter -Addiction medicine consult: placed on methadone detox protocol per Dr. Ley -Will give PRN Zofran prn for n/v and continue her Klonopin for her anxiety DVT Prophylaxis -Lovenox 40 mg SQ Daily FEN -Fluids: NS @ 75 cc / hr -Electrolytes: No electrolyte abnormalities, BMP in AM -Nutrition: NPO pending Sx Disposition Med.Surg Visit type - Emergency Visit Emergency Visit: No - New Patient This patient is new to me today: Yes Date on this admission: 12/06/17 - Critical Care Critical Care patient: No
[2017-12-06 11:36] LABS: METHADONE, UR NEGATIVE ng/ml (CUTOFF=300); URINE AMPHETAMINES NEGATIVE ng/ml (CUTOFF=500); URINE BARBITURATES NEGATIVE ng/ml (CUTOFF=200); URINE BENZODIAZEPINES NEGATIVE ng/ml (CUTOFF=200)
[2017-12-06 11:37] LABS: COCAINE, UR POSITIVE ng/ml (CUTOFF=300); OPIATES, URI POSITIVE ng/ml (CUTOFF=300); PHENCYCLIDINE,URINE POSITIVE ng/ml (CUTOFF=25)
[2017-12-06] MEDS ORDERED: METHADONE HCL 10 MG TABLET PO ONE ×3 (12:02→23:00)
[2017-12-06] MEDS ORDERED: diazePAM 5 MG TABLET PO PRN (12:02)
--- NOTE | 2017-12-06 12:07 | CONSULT ---
Consult Detox [facility] Reason for Current Admission/Consult: polysubstance use- drug of choice heroin - History History of Present Illness: 32 yo old female admitted with L arm abscess. Has a long h/o using substances, since age 11. Pt has had trauma throughout childhood. Pt states started using heroin about 5 years ago. Was in rehab for about 6 months, but as soon as she was discharged, she resumed heroin use. Uses several bundles of heroin a day. - Alcohol/Substance Use Hx Alcohol Use: No - Past Medical History Pulmonary: Yes: Asthma ...LMP: 11/29/17 ...: No COWS - Scale Resting Pulse: 1= OR 81-100 Sweatin=Flushed/Facial Moisture Restless Observation: 1= Difficult to Sit Still Pupil Size: 1= Pupils >than Normal Bone or Joint Aches: 1= Mild Discomfort Runny Nose/ Eye Tearin= Runny Nose/Eyes GI Upset > 30mins: 1= Stomach Cramp Tremor Observation: 1= Tremor [place], Not Seen Yawning Observation: 0= None Anxiety or Irritability: 2=Irritable/Anxious Goose Flesh Skin: 3=Piloerection COWS Score: 15 Assessment Plan - Plan Plan: As pt has been using heroin- urine tox positive will place pt on methadone detox protocol- d/w nurse on floor. d/w pt at length about addiction. d/w pt about methadone maintenance treatment. Pt is interested in following up with [facility]. Pt given phone number. Patient can be enrolled on the same day of discharge from [facility] if she leaves early AM and comes over to [facility]. Please let us know anticipated date of d/c: [phone] to have pt enroll in our MAT. - Medication Detox Regimen/Protocol: Clonidine, Methadone
--- NOTE | 2017-12-06 13:57 | PN ---
Progress Note (short form) - Note Progress Note: ID consult dictated imp/reccd 32 year old female IVDU-does not share needles- reports hep c and HIV ne gative- admitted with antecubial abscess left arm no fevers, no chills wbc normal reported it spontaneously drained the night before she came no oral antibiotics at home used warm compresses/warm tea no history TB no history of endocarditis i the past nontoxic appearing soft tissue infection of the arm - improving rapidly on clindamycin +induration would continue- hopefully change to po clindamycin i am lack of fever/normal WBC suspect this is a localized process being evaluated by surgery as well vancomycin adverse reaction-became itchy with iv vancomycin infusion in the past -hannah? Problem List - Problems (1) Soft tissue infection Code(s): L08.9 - LOCAL INFECTION OF THE SKIN AND SUBCUTANEOUS TISSUE, UNSP (2) Substance abuse Code(s): F19.10 - OTHER PSYCHOACTIVE SUBSTANCE ABUSE, UNCOMPLICATED (3) Vancomycin adverse reaction Code(s): T36.8X5A - ADVERSE EFFECT OF OTHER SYSTEMIC ANTIBIOTICS, INIT ENCNTR
--- NOTE | 2017-12-06 18:01 | PN ---
Teaching Attending Note Name of Resident: Kenyon Keith ATTENDING PHYSICIAN STATEMENT I saw and evaluated the patient. I reviewed the resident's note and discussed the case with the resident. I agree with the resident's findings and plan as documented. SUBJECTIVE: No fever or chills . No abd pain .wants her home klonopin. OBJECTIVE: NAD CV: RRR. No MRG Lungs: CTAB ext: L antecubital area with enuration and tenderness. No drainage. . no edma on LE skin :scabs all over her skin ASSESSMENT AND PLAN: 32 y/o lady with h/o polysubstance abuse, asthma and anxiety who presented with L arm askin lesion and was found to have cellulitis with abscess fromation 1- Cellulitis with abscess formation in L antecubital area: improved - cont clinda. - to OR tonight . - send cx after drainage - appreciate ID input 2-Heroin abuse : Methadone taper 3- H/o Anxiety: pharmacy called and no records of klonopin were found 4- H/o Asthma: not active
--- NOTE | 2017-12-06 20:13 | EKG ---
Test Reason : Blood Pressure : / mmHG Vent. Rate : 083 BPM Atrial Rate : 083 BPM P-R Int : 154 ms QRS Dur : 094 ms QT Int : 386 ms P-R-T Axes : 045 044 013 degrees QTc Int : 453 ms NORMAL SINUS RHYTHM NORMAL ECG WHEN COMPARED WITH ECG OF 14-DEC-2016 21:15, NO SIGNIFICANT CHANGE WAS FOUND Confirmed by COCO CRAFT MD ([id number]) on 12/06/2017 8:13:32 PM Referred By: Confirmed By:COCO CRAFT MD
[2017-12-06] MEDS ORDERED: CLINDAMYCIN HCL 300 MG CAPSULE PO ONE (20:56)
[2017-12-06] MEDS: cloNIDine HCL 0.1 MG TABLET PO SCH (21:08)
[2017-12-06] MEDS ORDERED: clonazePAM 0.5 MG TABLET PO SCH (21:15)
[2017-12-06] MEDS ORDERED: CLINDAMYCIN HCL 150 MG CAPSULE (FP) PO ONE (21:30)
[2017-12-07] MEDS ORDERED: CLINDAMYCIN HCL 150 MG CAPSULE (FP) PO ONE ×2 (02:15→05:00)
[2017-12-07] MEDS: CLINDAMYCIN 600MG PREMIX IVPB 600 MG/50 ML BAG IVPB SCH (02:16)
[2017-12-07] MEDS: SODIUM CHLORIDE 1,000 ML IV SCH (02:17)
[2017-12-07] MEDS: clonazePAM 0.5 MG TABLET PO PRN (08:37)
[2017-12-07] MEDS ORDERED: PT OWN MED DRAWER 7, Y5N ONE (09:33)
[2017-12-07 09:41] LABS: BASO % 0.6 % (0-2.0); HEMATOCRIT 33.6 % (32.4-45.2); HEMOGLOBIN 11.1 GM/dL (10.7-15.3); LYMPH % 36.9 % (8-40); MCHC 33.1 g/dl (32.0-36.0); MEAN CELL VOLUME 84.6 fl (80-96); MEAN PLT VOLUME 9.3 fl (7.5-11.1); MONO % 7.3 % (3.8-10.2); NEUT % 53.2 % (42.8-82.8); PLATELET COUNT 204 K/MM3 (134-434); RBC 3.97 M/mm3 (3.60-5.2); RDW 13.7 % (11.6-15.6); WHITE BLOOD COUNT 4.4 K/mm3 (4.0-10.0)
[2017-12-07] MEDS: cloNIDine HCL 0.1 MG TABLET PO SCH (10:00)
[2017-12-07] MEDS: NICOTINE 14 MG/24 HOURS TOPICAL PATCH TD SCH (10:00)
[2017-12-07] MEDS ORDERED: METHADONE HCL 10 MG TABLET PO ONE (10:00)
[2017-12-07] MEDS: ENOXAPARIN NA (PORCINE) 40 MG/0.4 ML DISP.SYRIN SQ SCH (10:00)
[2017-12-07] MEDS: CLINDAMYCIN HCL 150 MG CAPSULE (FP) PO SCH ×2 (10:03→17:44)
[2017-12-07 10:08] LABS: ANION GAP 10 MMOL/L (8-16); BLOOD UREA NITROGEN 7 mg/dL (7-18); CALCIUM 9.3 mg/dL (8.5-10.1); CHLORIDE 108 mmol/L (98-107); CO2 26 mmol/L (21-32); CREATININE 0.6 mg/dL (0.55-1.02); GLUCOSE,RANDOM 111 mg/dL (74-106); POTASSIUM 4.5 mmol/L (3.5-5.1); SODIUM 144 mmol/L (136-145)
[2017-12-07 11:32] VITALS: TEMP 98.1
--- NOTE | 2017-12-07 14:37 | PN ---
Teaching Attending Note Name of Resident: Mandi Keys ATTENDING PHYSICIAN STATEMENT I saw and evaluated the patient. I reviewed the resident's note and discussed the case with the resident. I agree with the resident's findings and plan as documented. SUBJECTIVE: No fever or chills. No MIMS , no pain. OBJECTIVE: NAD CV: RRR. No MRG Lungs: CTAB ext: L antecubital area with induration and tenderness. No drainage. .decreased erythema around that area . No edema on LE skin:scabs all over her skin ASSESSMENT AND PLAN: 32 y/o lady with h/o polysubstance abuse, asthma and anxiety who presented with L arm askin lesion and was found to have cellulitis with abscess fromation 1- Cellulitis with abscess formation in L antecubital area: improved . surgery was cancelled as abscess is smaller and not draining - cont po clinda. lost IV access any way. will cont for 7 days 2-Heroin abuse : Methadone taper. [facility] cont at [facility] 3- H/o Asthma: not active DC to [facility] for detox .
[2017-12-07 15:34] VITALS: BP 127/71; PULSE 82
--- NOTE | 2017-12-07 17:09 | PN ---
Progress Note, Physician Chief Complaint: left arm abscess History of Present Illness: 32 yo RHD female PMH IVDA and asthma presents emergency department with fevers, chills, abscess in her left arm for one week. Stable overnight. Wound appears greatly improved. no complaints. - Current Medication List Current Medications: Active Medications Albuterol Sulfate (Ventolin Hfa Inhaler -) 2 puff IH Q4H PRN PRN Reason: SHORT OF BREATH/WHEEZING Clindamycin HCl (Cleocin -) 300 mg PO Q6HPO [facility] Last Admin: 12/07/17 10:03 Dose: 300 mg Clonazepam (Klonopin -) 1 mg PO BID PRN PRN Reason: ANXIETY Last Admin: 12/07/17 08:37 Dose: 1 mg Clonidine (Catapres -) 0.1 mg PO BID [facility] Stop: 12/10/17 19:44 Last Admin: 12/07/17 10:00 Dose: 0.1 mg Enoxaparin Sodium (Lovenox -) 40 mg SQ DAILY [facility] Last Admin: 12/07/17 10:00 Dose: Not Given Methadone HCl (Dolophine -) 15 mg PO ONCE ONE Stop: 12/08/17 23:59 Methadone HCl (Dolophine -) 5 mg PO ONCE@0600 ONE Stop: 12/11/17 23:59 Methadone HCl (Dolophine -) 15 mg PO ONCE ONE Stop: 12/09/17 23:59 Methadone HCl (Dolophine -) 10 mg PO ONCE ONE Stop: 12/10/17 10:01 Nicotine (Nicoderm Patch -) 14 mg TD DAILY [facility] Last Admin: 12/07/17 10:00 Dose: 14 mg - Objective Vital Signs: Vital Signs Temperature 98.1 F 12/07/17 14:32 Pulse Rate 82 12/07/17 14:32 Respiratory Rate 20 12/07/17 14:32 Blood Pressure 127/71 12/07/17 14:32 O2 Sat by Pulse Oximetry (%) 99 12/06/17 09:00 Vital Signs Period Temp Pulse Resp BP Sys/Emanuel Pulse Ox Last 24 Hr 97.6 F-98.3 F 66-84 20-20 125-146/71-84 Constitutional: Yes: Well Nourished, No Distress, Calm Eyes: Yes: Conjunctiva Clear, EOM Intact HENT: Yes: Atraumatic, Normocephalic Neck: Yes: Supple, Trachea Midline Cardiovascular: Yes: Regular Rate and Rhythm, S1, S2 Respiratory: Yes: Regular, CTA Bilaterally Gastrointestinal: Yes: Normal Bowel Sounds, Soft. No: Tenderness ...Rectal Exam: Yes: Deferred Genitourinary: No: CVA Tenderness - Left, CVA Tenderness - Right Extremities: No: Cool, Cyanosis Edema: No Peripheral Pulses WNL: Yes Peripheral Pulses: Left Radial: 2+, Right Radial: 2+, Left Doralis Pedis: 2+, Right Dorsalis Pedis: 2+ Integumentary: Yes: Other (meultiple tract marie) Wound/Incision: Yes: Clean/Dry, Reddened (left antecubitcal fossa) Neurological: Yes: Alert, Oriented Psychiatric: Yes: Alert, Oriented Labs: CBC, BMP 12/07/17 09:10 12/07/17 09:10 Problem List - Problems (1) Abscess of antecubital fossa Assessment/Plan: 32yo RHD female IVDA with left antecubital abscess partially spontaneously draining No need for surgical intervention PT evaluation Recall as needed Code(s): L02.419 - CUTANEOUS ABSCESS OF LIMB, UNSPECIFIED (2) Sepsis Code(s): A41.9 - SEPSIS, UNSPECIFIED ORGANISM Qualifiers: Sepsis type: sepsis due to unspecified organism Qualified Code(s): A41.9 - Sepsis, unspecified organism (3) Drug-induced mood disorder Code(s): F19.94 - OTH PSYCHOACTIVE SUBSTANCE USE, UNSP W MOOD DISORDER (4) Opioid dependence with withdrawal Code(s): F11.23 - OPIOID DEPENDENCE WITH WITHDRAWAL (5) Anxiety Code(s): F41.9 - ANXIETY DISORDER, UNSPECIFIED (6) Asthma Code(s): J45.909 - UNSPECIFIED ASTHMA, UNCOMPLICATED Qualifiers: Asthma severity: mild intermittent Asthma complication type: uncomplicated
--- NOTE | 2017-12-07 17:45 | DS ---
Physical Exam: SUBJECTIVE: Patient seen and examined at bedside. No acute events overnight. OBJECTIVE: Vital Signs Period Temp Pulse Resp BP Sys/Emanuel Pulse Ox Last 24 Hr 97.6 F-98.3 F 66-84 20-20 125-146/71-84 PHYSICAL EXAM GENERAL: Awake, A&Ox3, NAD HEAD: Normocephalic, well healing laceration on posterior scalp, carissa removed , no drainage or blood EYES: PERRLA, EOMI, no scleral icterus EARS, NOSE, THROAT: oropharynx clear without exudates. Moist mucous membranes. NECK: supple without lymphadenopathy LUNGS: CTA b/l, no crackles or wheezes HEART: Regular rate and rhythm, normal S1 and S2 without murmur, rub or gallop. ABDOMEN: Soft, nontender to palpation, normoactive bowel sounds MUSCULOSKELETAL: No bony deformities or tenderness. No CVA tenderness. No spinal tenderness. EXTREMITIES: LUE abscess nondraining, 5X4 cm indurated area of left AC fossa, erythematous without additional warmth; 2+ pulses, warm, well-perfused. No cyanosis. No clubbing. NEUROLOGICAL: Cranial nerves II-XII grossly intact. Normal speech. PSYCHIATRIC: Cooperative. Good eye contact. Appropriate mood and affect. Anxious. SKIN: Numerous scabs/abrasions diffusely throughout body, range in size from 0.5 cm to 5-6 cm. Warm, dry, normal turgor, no rashes LABS Laboratory Results - last 24 hr 12/07/17 12/07/17 09:10 09:10 WBC 4.4 RBC 3.97 Hgb 11.1 Hct 33.6 MCV 84.6 MCH 28.0 MCHC 33.1 RDW 13.7 Plt Count 204 MPV 9.3 Absolute Neuts (auto) 2.3 Neutrophils % 53.2 D Lymphocytes % 36.9 D Monocytes % 7.3 D Eosinophils % 2.0 D Basophils % 0.6 Nucleated RBC % 0 Sodium 144 Potassium 4.5 Chloride 108 H Carbon Dioxide 26 Anion Gap 10 BUN 7 Creatinine 0.6 Creat Clearance w eGFR > 60 Random Glucose 111 H Calcium 9.3 HOSPITAL COURSE: Date of Admission:12/06/17 IMAGING: LUE U/S: Nonspecific hetergenous approximately 3x2.7x1 cm avascular structure. Sonograph appearance is nonspecific and would include etiologies such as an abscess with intraluminal debris. No definite intraluminal fluid can be appreciated. Neoplastic disease may demonstrate a similar appearance. 32F with PMH IDVA, asthma, anxiety admitted to med/surg for abscess of left antecubital fossa. In the ED, pt was given clindamycin and unasyn. Blood cultures were ordered. Due to infection, ID was consulted. Pt was switched to Clindamycin for antibiotic treatment. Due to initial presentation of draining abscess, surgery was also consulted. Upon surg eval, I&D was deemed not necessary at this time as pt's abscess had rapidly improved with antibiotics. Additionally, pt has a hx of heroine abuse. As a result, she was placed on Methadone taper. Detox physician was consulted. Upon detox consult, pt was given recommendation to continue methadone detox at [facility] and to be placed on Methadone Maintenance therapy. Blood cultures were neg x24 hrs and will be continued to be follow up for any bacterial growth warranting further antibiotic treatment. Throughout the pt's hospital stay, her symptoms had improved. Pt was discharged to [facility] to continue Methadone withdrawal treatment as well as given instructions to continue the rest of the antibiotic treatment. Date of Discharge: 12/07/17 Minutes to complete discharge: 35 Discharge Summary Reason For Visit: SEPSIS Current Active Problems Abscess of antecubital fossa (Acute) Condition: Improved - Instructions Diet, Activity, Other Instructions: You were admitted to the hospital for treatment of cellulitis on your left arm. You were given antibiotics to treat your infection. You were also seen by the detox physician for treatment of heroin withdrawal. During your hospital stay, your symptoms improved. You are being discharged to [facility] to continue your methadone detox treatment. MEDICAL RECOMMENDATIONS You have completed Day 2 of your detox. Please continue your Methadone detox at [facility]. On Day 3 (12/08), please take Methadone 15 mg once. On Day 4 (12/09), please take Methadone 15 mg once. On Day 5 (12/10), please take Methadone 10 mg once. On Day 6 (12/11), please take Methadone 5 mg once. Please start taking Clindamycin 300 mg by mouth every 6 hours for 7 more days starting tomorrow, December 08, 2017 for your cellulitis. Please continue taking your home meds as directed. CONSULT RECOMMENDATIONS Please follow up with your primary care physician, Dr. Nguyen, within 1 week. If you experience worsening chest pain, heart palpitations, shortness of breath , nausea/vomiting or persistent headaches/dizziness, please proceed to your nearest emergency room immediately. Referrals: Mare Nguyen [Other] - 1 Week Disposition: HOME - Home Medications Comprehensive Discharge Medication List: Ambulatory Orders Clindamycin [Cleocin -] 300 mg PO Q6H #56 capsule 12/07/17 Methadone [Dolophine -] See Taper PO DAILY #9 tablet MDD 3 12/07/17 This patient is new to me today: Yes Date on this admission: 12/07/17 Emergency Visit: Yes ED Registration Date: 12/06/17 Care time: The patient presented to the Emergency Department on the above date and was hospitalized for further evaluation of their emergent condition. Critical Care patient: No - Discharge Referral Referred to [facility] No
[2017-12-08] MEDS ORDERED: METHADONE HCL 5 MG TABLET PO ONE (10:00)
[2017-12-09] MEDS ORDERED: METHADONE HCL 5 MG TABLET PO ONE (10:00)
[2017-12-10] MEDS ORDERED: METHADONE HCL 10 MG TABLET PO ONE (10:00)
[2017-12-11] MEDS ORDERED: METHADONE HCL 5 MG TABLET PO ONE (06:00)
== END 2017-12-07 18:03 | disposition home or self-care (01) | DRG 383 ==
LOC: JER 21:11 → JERBED 12-06 00:53 → J5S 12-06 02:33
PROVIDERS: ADMIT Internal Medicine; ATTEND Internal Medicine
PROC: HZ2ZZZZ Detoxification Services for Substance Abuse Treatment (ICD-10-PCS; principal; 2017-12-06)
DX: L02.414 Cutaneous abscess of left upper limb (principal); F41.9 Anxiety disorder, unspecified; F17.210 Nicotine dependence, cigarettes, uncomplicated; F14.20 Cocaine dependence, uncomplicated; R73.9 Hyperglycemia, unspecified; F19.94 Other psychoactive substance use, unspecified with psychoactive substance-induced mood disorder; J45.20 Mild intermittent asthma, uncomplicated; L08.9 Local infection of the skin and subcutaneous tissue, unspecified; T36.8X5A Adverse effect of other systemic antibiotics, initial encounter; Z79.891 Long term (current) use of opiate analgesic; L03.114 Cellulitis of left upper limb; F11.23 Opioid dependence with withdrawal
CPT/HCPCS: 36415; 71046-TC-FY; 73070-TC-LT-FY; 76882; 80048; 80053; 80307; 81003; 83036; 83605; 83735; 84100; 84703; 85025; 85027; 87040; 87086; 87389; 93005; 93010; 99283-25; J0735; J7030